=== PATIENT | female | born 1940 | race Caucasian/White ===

== ENCOUNTER 2017-01-31 06:18 | Emergency (ER) | payer MEDICARE, OTHER ==
[~2017-01-31] VITALS: Ht 157.5 cm; Wt 59.0 kg
[~2017-01-31 06:18] MED LIST: ACET325T9 PO; AMLO5TAB2 PO; ASCO500T3 PO; ASPI81TA2 PO; CALC-47 PO; CYCL1DRO EACHEYE; EYEL1TOW3 TP; FERR-26 PO; GLUC1CAP57 PO; GUAI-42 PO; HYDR-2868 PO; HYDR-2869 PO; HYDR100T24 PO; IRON1CAP14 PO; ISOS30TA4 PO; MULT1CAP15 PO; NEBI20TA2 PO; NITR0.4T SL; OMEP20CA9 PO; OMEP20TA PO; OMEP40CA5 PO; PANT40TA5 PO; PRAV40TA2 PO; SOLI5TAB PO; VIT1CAPS12 PO
[2017-01-31] MEDS ORDERED: ONDANSETRON ODT 4 MG TAB.RAPDIS ONE (06:23)
[2017-01-31] MEDS ORDERED: IV NORMAL SALINE 1,000ML 1,000 ML IV SCH ×2 (06:46→09:00)
[2017-01-31] MEDS ORDERED: ONDANSETRON PF 4 MG/2 ML VIAL. IV ONE (07:30)
[2017-01-31] MEDS ORDERED: ONDANSETRON ODT 4 MG TAB.RAPDIS PO ONE (07:30)
[2017-01-31] MEDS ORDERED: FAMOTIDINE 20 MG/2 ML VIAL IVP ONE (07:30)
--- NOTE | 2017-01-31 07:42 | EKG ---
[address] [address] Test Date: 2017-01-31 Test Time: 07:39:54 Pat Name: ADRI SHABAZZ Department: Room: Gender: F Rail Director: VIPUL : 1940 Requested By: ROXI BROWNE Order Number: [id number] Reading MD: Stalin Moe Measurements Intervals [place] Rate: 78 P: 47 LA: 158 QRS: 40 QRSD: 74 T: 59 QT: 378 QTc: 434 Interpretive Statements SINUS RHYTHM Electronically Signed On 02-04-2017 15:28:09 CDT by Stalin Moe
[2017-01-31 07:45] LABS: BASO % 0 % (0-3); EOS % 0 % (0-3); HEMATOCRIT 38.1 % (36.0-47.0); HEMOGLOBIN 12.4 g/dL (12.0-15.5); LYMPH # 0.4 x10^3/uL (1.0-4.8); LYMPH % 3 % (24-48); MEAN CORPUSCULAR HEMOGLOBIN 29 pg (25-35); MEAN CORPUSCULAR HGB CONC 33 g/dL (31-37); MEAN CORPUSCULAR VOLUME 90 fL (79-100); MONO # 0.9 x10^3/uL (0.0-1.1); MONO % 8 % (0-9); NEUT # 11.1 x10^3uL (1.8-7.7); NEUT % 89 % (31-73); PLATELET COUNT 152 x10^3/uL (140-400); RED BLOOD COUNT 4.26 x10^6/uL (3.50-5.40); RED CELL DISTRIBUTION WIDTH 13.8 % (11.5-14.5); WHITE BLOOD COUNT 12.5 x10^3/uL (4.0-11.0)
[2017-01-31 07:50] LABS: ALBUMIN 3.7 g/dL (3.4-5.0); ALBUMIN/GLOBULIN RATIO 1.1 (1.0-1.7); CREATININE 1.7 mg/dL (0.6-1.0); GFR 29.4; MAGNESIUM 1.6 mg/dL (1.8-2.4); POTASSIUM 4.1 mmol/L (3.5-5.1); TOTAL BILIRUBIN 0.5 mg/dL (0.2-1.0)
--- NOTE | 2017-01-31 07:51 | RAD ---
Indication nausea and vomiting. A single view of the chest as well as flat and upright films of the abdomen were obtained. The chest is compared to an examination 11/18/2016. No recent plain film imaging of the abdomen is available. Postoperative changes are noted. Heart size is within normal limits. There is no congestive heart failure focal infiltrate significant pleural fluid collection or pneumothorax. There is no free air. The abdominal gas pattern is largely gasless. There are densities in the pelvis which are likely incidental. A definite or acute finding is not apparent on plain films. Vascular calcification is noted IMPRESSION: No acute finding seen in the chest or abdomen on plain films. The abdomen is largely gasless
--- NOTE | 2017-01-31 07:56 | PHYS DOC ---
General Chief Complaint: NAUSEA/VOMITING/DIARRHEA Stated Complaint: VOMITING,DIARRHEA,CHILLS Time Seen by MD: 06:20 Source: patient Exam Limitations: no limitations Problems: History of Present Illness Initial Comments Pt is 76/F to ED c/o n/v/d. Pt states she awoke approx 0300 with cramping, began having loose stools. Shortly after that she began vomitting, states she's had persistent n/v since then. Last emesis ED parking lot as she arrived, one loose stool here. No blood/travel/bad food exposure/fever/chills. Pt has generalized abdominal cramping no focal pain complaints. She is hungry but fears PO intake due to n/ v. Also c/o dry mouth and generalized fatigue. Timing/Duration: 1-3 hours Severity: severe Modifying Factors: worse with eating Associated Symptoms: malaise, nausea/vomiting Allergies: Coded Allergies: amoxicillin (Unverified Allergy, Severe, Rash, 08/26/15) tetracycline (Unverified Allergy, Severe, Rash, 08/26/15) atorvastatin (Verified Allergy, Intermediate, 02/10/16) niacin (Unverified Adverse Reaction, Mild, BLISTERS, 11/16/14) Past Medical History Medical History: other (pancreatitis, anemia, GERD, CKD 2-3, HTN, CAD, HLP) Surgical History: coronary bypass surgery, other (CABG x 2 2009, [place], hysterectomy) Social History Smoker: non-smoker Alcohol: none Drugs: none Review of Systems Constitutional: denies chills, denies diaphoresis, denies fever, malaise Respiratory: denies cough, denies shortness of breath Cardiovascular: denies chest pain, denies palpitations Gastrointestinal: see HPI Genitourinary: denies dysuria, denies frequency, denies hematuria Musculoskeletal: denies back pain, denies joint swelling, denies neck pain Psychiatric/Neurological: denies headache, denies numbness, denies paresthesia Physical Exam General Appearance: WD/WN, moderate distress Eyes: bilateral eye EOMI, bilateral eye PERRL, bilateral eye normal inspection Ear, Nose, Throat: hearing grossly normal, normal ENT inspection (very dry membranes), normal pharynx Neck: non-tender, supple Respiratory: normal breath sounds, no respiratory distress Cardiovascular: normal peripheral pulses, regular rate, rhythm Gastrointestinal: soft (ND, generalized mild TTP no focality, no r/g/mass) Rectal: deferred Back: no CVA tenderness, no vertebral tenderness Extremities: non-tender, normal inspection Neurologic/Psychiatric: 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 PHYSICIAN: ROXI BROWNE DO REASON: n/v/d PROCEDURE: ACUTE ABDOMEN SERIES Indication nausea and vomiting. A single view of the chest as well as flat and upright films of the abdomen were obtained. The chest is compared to an examination 11/18/2016. No recent plain film imaging of the abdomen is available. Postoperative changes are noted. Heart size is within normal limits. There is no congestive heart failure focal infiltrate significant pleural fluid collection or pneumothorax. There is no free air. The abdominal gas pattern is largely gasless. There are densities in the pelvis which are likely incidental. A definite or acute finding is not apparent on plain films. Vascular calcification is noted IMPRESSION: No acute finding seen in the chest or abdomen on plain films. The abdomen is largely gasless DICTATED AND SIGNED BY: ART COOK MD DATE: 01/31/17 0745 CC: ADELE WALDROP; ROXI BROWNE DO ~ 0818: Time in department 2 hours. Pt will have prolonged ED course as she has not produced urine specimen. Prolonged ED course due to lab delay. Reassuring workup. No n/v, pt feeling much better ready for discharge. Color improved as well as affect. Departure Time of Disposition: 08:37 Disposition: 01 HOME, SELF-CARE Diagnosis: gastroenteritis Condition: IMPROVED Patient Instructions: Viral Gastroenteritis, [id number] Additional Instructions: Rest, no strenuous activity. Clear liquids, advance to bland diet as tolerated. Aggressive hydration with gatorade, water. OTC probiotics or cultured yogurt daily until bowels normalize. Rx: zofran odt, phenergan suppositories Follow up with your doctor Friday if not better. Return to ED with new or changing symptoms. ROXI BROWNE DO Jan 31, 2017 07:56
[2017-01-31] MEDS ORDERED: PROM25SU32 RC (08:41)
[2017-01-31] MEDS ORDERED: ONDA4TAB10 PO (08:41)
[2017-01-31 08:51] LABS: % BANDS 10 % (0-9); % EOS 1 % (0-5); % LYMPHS 3 % (24-48); % METAS 2 % (0-0); % MONOS 6 % (0-10); % SEGS 78 % (35-66)
[2017-01-31 08:52] LABS: PLT ESTIMATE ADEQUATE (ADEQUATE)
[2017-01-31 08:53] LABS: CLARITY,URINE CLEAR; COLOR,URINE YELLOW
[2017-01-31 08:54] LABS: BILIRUBIN,URINE NEG (NEG); GLUCOSE,URINE NEG (NEG); NITRITE,URINE NEG (NEG); UROBILINOGEN,URINE 0.2 mg/dL (0.2 mg/dL)
[2017-01-31 09:04] VITALS: BP 167/65
[2017-01-31 09:13] LABS: AMPHETAMINE/METHAMPHETAMINE NEG (NEG); BARBITURATES NEG (NEG); BENZODIAZEPINES NEG (NEG); CANNABINOIDS NEG (NEG); COCAINE NEG (NEG); METHADONE NEG (NEG); OPIATES NEG (NEG); PHENCYCLIDINE NEG (NEG)
== END 2017-01-31 09:31 | disposition home or self-care (01) ==
LOC: ER 06:18
DX: K52.9 Noninfective gastroenteritis and colitis, unspecified (principal); K21.9 Gastro-esophageal reflux disease without esophagitis; I25.10 Atherosclerotic heart disease of native coronary artery without angina pectoris; I12.9 Hypertensive chronic kidney disease with stage 1 through stage 4 chronic kidney disease, or unspecified chronic kidney disease; N18.3 Chronic kidney disease, stage 3 (moderate); Z86.2 Personal history of diseases of the blood and blood-forming organs and certain disorders involving the immune mechanism; E78.5 Hyperlipidemia, unspecified; Z95.1 Presence of aortocoronary bypass graft; Z88.1 Allergy status to other antibiotic agents; Z88.8 Allergy status to other drugs, medicaments and biological substances
CPT/HCPCS: 36415; 74022; 80053; 80305; 81003; 82150; 82550; 83690; 83735; 84484; 85007; 85027; 93005; 96361; 96374; 96375; 99285; J2405; S0028; G0481; J7030

== ENCOUNTER → 2017-04-09 | Outpatient (CLI) | payer MEDICARE, OTHER ==
[~2017-04-09] MED LIST changes: +ASPI-630 PO; -ASPI81TA2 PO; +CALC-157 PO; -CALC-47 PO; +GUAI-107 PO; -GUAI-42 PO; -OMEP20TA PO; +OMEP20TA8 PO; +ONDA4TAB10 PO; +PROM25SU32 RC; -SOLI5TAB PO; +SOLI5TAB2 PO
--- NOTE | 2017-04-09 10:50 | RAD ---
Indication: Left knee pain. Time of exam 10:38 AM 3 views of the left knee were obtained. There is fairly significant patellofemoral degenerative change with joint space narrowing and marginal spurring. There is some chondrocalcinosis of the medial and lateral compartments. No fractures are identified. There is no dislocation. No effusion is seen. Impression: Chronic changes. No acute bony abnormality is detected.
--- NOTE | 2017-04-09 10:52 | RAD ---
Indication: Left leg pain. Grayscale, color-flow and duplex Doppler evaluation of the left looks to be deep venous system was performed. There is no evidence of a left lower extremity DVT. The left lower extremity deep venous system shows normal compressibility with normal response to augmentation and Valsalva. Note is made of a moderate left knee joint effusion. Impression: 1. No evidence of left lower extremity DVT. 2. Left knee joint effusion.
== END | disposition home or self-care (01) ==
LOC: US 09:46
PROVIDERS: ATTEND Physician Assistant Medical
DX: M17.12 Unilateral primary osteoarthritis, left knee (principal)
CPT/HCPCS: 73562; 93971

== ENCOUNTER → 2018-03-25 | Outpatient (CLI) | payer MEDICARE, OTHER ==
[~2018-03-25] MED LIST changes: -FERR-26 PO; +FERR325T14 PO; -GUAI-107 PO; +GUAI-108 PO
--- NOTE | 2018-03-25 12:24 | RAD ---
EXAM: Left knee, 3 views. HISTORY: Pain. COMPARISON: 04/09/2017 FINDINGS: Frontal, lateral and oblique views of the left knee are obtained. There is mild tricompartmental spurring. There is medial and lateral compartment chondrocalcinosis. There is patellofemoral compartment joint space narrowing. There is a trace joint effusion. There is prepatellar soft tissue prominence which may be physiologic or due to swelling. There are vascular calcifications. IMPRESSION: 1. 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 2. No acute osseous finding. Electronically signed by: Dilcia Wall MD (03/25/2018 12:20 PM) [id number]
== END | disposition home or self-care (01) ==
LOC: DXRAD 10:52
PROVIDERS: ATTEND Orthopaedic Surgery Sports Medicine
DX: M17.12 Unilateral primary osteoarthritis, left knee (principal); M11.262 Other chondrocalcinosis, left knee
CPT/HCPCS: 73562

== ENCOUNTER → 2018-04-06 | Outpatient (CLI) | payer MEDICARE, OTHER ==
[2018-04-06 12:05] LABS: ALBUMIN 3.9 g/dL (3.4-5.0); ALBUMIN/GLOBULIN RATIO 1.1 (1.0-1.7); CALCIUM 10.2 mg/dL (8.5-10.1); CREATININE 1.6 mg/dL (0.6-1.0); GFR 31.4; POTASSIUM 4.1 mmol/L (3.5-5.1); TOTAL BILIRUBIN 0.6 mg/dL (0.2-1.0); TOTAL PROTEIN 7.4 g/dL (6.4-8.2)
== END | disposition home or self-care (01) ==
LOC: LAB 11:12
PROVIDERS: ATTEND Internal Medicine Cardiovascular Disease
DX: E78.01 Familial hypercholesterolemia (principal); I12.9 Hypertensive chronic kidney disease with stage 1 through stage 4 chronic kidney disease, or unspecified chronic kidney disease; N18.3 Chronic kidney disease, stage 3 (moderate); E78.00 Pure hypercholesterolemia, unspecified
CPT/HCPCS: 36415; 80053; 80061

== ENCOUNTER → 2018-04-13 | Outpatient (CLI) | payer MEDICARE, OTHER ==
--- NOTE | 2018-04-13 14:25 | RAD ---
DATE: 2017 EXAM: MAMMO CAROLINE SCREENING BILATERAL HISTORY: Asymptomatic screening mammogram. History of prior benign breast biopsy. COMPARISON: Prior mammograms from 08/30/2016 This study was interpreted with the benefit of Computerized Aided Detection (CAD). The breast parenchyma is primarily fatty replaced. Breast parenchyma level density A. FINDINGS: Bilateral CC and MLO views of the breasts were performed. 3-D tomosynthesis was performed in CC and MLO projections of each breast. Right breast: There are no suspicious microcalcifications, masses or areas of architectural distortion. Benign microcalcifications are present. Left breast: There are no suspicious microcalcifications, masses or areas of architectural distortion. Benign microcalcifications are present. Findings are stable from prior mammogram. IMPRESSION: Negative bilateral mammogram. BI-RADS CATEGORY: 1 NEGATIVE RECOMMENDED FOLLOW-UP: 12M 12 MONTH FOLLOW-UP PQRS compliance statement: Patient information was entered into a reminder system with a target due date 04/13/2019 for the next mammogram. Mammography is a sensitive method for finding small breast cancers, but it does not detect them all and is not a substitute for careful clinical examination. A negative mammogram does not negate a clinically suspicious finding and should not result in delay in biopsying a clinically suspicious abnormality. "Our facility is accredited by the [employer] Mammography Program."
== END | disposition home or self-care (01) ==
LOC: MAMMO 11:03
PROVIDERS: ATTEND Physician Assistant Medical
DX: Z12.31 Encounter for screening mammogram for malignant neoplasm of breast (principal); I12.9 Hypertensive chronic kidney disease with stage 1 through stage 4 chronic kidney disease, or unspecified chronic kidney disease; N18.3 Chronic kidney disease, stage 3 (moderate); E78.5 Hyperlipidemia, unspecified; E78.00 Pure hypercholesterolemia, unspecified
CPT/HCPCS: 77063; 77067

== ENCOUNTER → 2018-08-14 | Outpatient (CLI) | payer MEDICARE, OTHER ==
[~2018-08-14] MED LIST changes: -AMLO5TAB2 PO; +AMLO5TAB7 PO
[2018-08-14 15:06] LABS: BASO % 0 % (0-3); EOS # 0.2 x10^3/uL (0.0-0.7); EOS % 3 % (0-3); HEMATOCRIT 33.4 % (36.0-47.0); HEMOGLOBIN 11.5 g/dL (12.0-15.5); LYMPH # 2.1 x10^3/uL (1.0-4.8); LYMPH % 30 % (24-48); MEAN CORPUSCULAR HEMOGLOBIN 31 pg (25-35); MEAN CORPUSCULAR HGB CONC 34 g/dL (31-37); MEAN CORPUSCULAR VOLUME 90 fL (79-100); MONO # 0.8 x10^3/uL (0.0-1.1); MONO % 11 % (0-9); NEUT % 56 % (31-73); PLATELET COUNT 175 x10^3/uL (140-400); RED BLOOD COUNT 3.71 x10^6/uL (3.50-5.40); RED CELL DISTRIBUTION WIDTH 13.3 % (11.5-14.5); WHITE BLOOD COUNT 7.1 x10^3/uL (4.0-11.0)
[2018-08-14 15:07] LABS: ALBUMIN 3.5 g/dL (3.4-5.0); CALCIUM 8.2 mg/dL (8.5-10.1); CREATININE 1.8 mg/dL (0.6-1.0); GFR 27.4; PHOSPHORUS 3.5 mg/dL (2.6-4.7)
[2018-08-15 06:12] LABS: CALCIUM PTH 8.6 mg/dL (8.7-10.3); CREATININE PTH 1.73 mg/dL (0.57-1.00); PTH INTACT 149 pg/mL (15-65)
== END | disposition home or self-care (01) ==
LOC: LAB 13:54
PROVIDERS: ATTEND Internal Medicine Nephrology
DX: I12.9 Hypertensive chronic kidney disease with stage 1 through stage 4 chronic kidney disease, or unspecified chronic kidney disease (principal); N18.2 Chronic kidney disease, stage 2 (mild); D63.1 Anemia in chronic kidney disease; N20.0 Calculus of kidney
CPT/HCPCS: 36415; 80069; 82728; 83540; 83550; 83970; 85025

== ENCOUNTER 2018-12-05 04:27 | Inpatient (IN) | payer MEDICARE, OTHER ==
[~2018-12-05] VITALS: Ht 157.5 cm; Wt 60.8 kg
[~2018-12-05 04:27] MED LIST changes: +AMLO5TAB10 PO; -AMLO5TAB7 PO
--- NOTE | 2018-12-05 04:30 | ED.ADGEN ---
Past History Past Medical History: CAD, Gallstones, GERD, Hypertension, Kidney Stones, NM, Pancreatitis, URI, Other Past Surgical History: Cholecystectomy, Coronary Bypass Surgery, Hysterectomy Alcohol Use: None Drug Use: None Adult General Chief Complaint Chief Complaint ".. I had some wheezing and a cough... but I ve around sick grand kids.. he sick.. but what worried thought I was getting some reflux.. I vomited up a little acid in my throat... got some epigastric pain.. . but then it did not go away.. chest pain got bad... so I took two nitros.. but it did not help... so I came in.. now I have only discomfort of one or two..." HPI HPI Patient is a 78 year old female who presents with above hx and complaints cough , wheeze, epigastric and chest pain. The patient has significant medical history with history of coronary artery disease, coronary artery bypass surgery x 2 in 2009 at [facility],eveated lipids. GERD, gastric polyp, hypertension, kidney stones, renal insuf., creat 1.8 , arthritis and pancreatitis. Stress test past year was reportedly show no acute changes., Patient has been exposed to numerous sick family members. Patient did receive her flu vaccination this season. No recent travel or trauma. No history of tarry stools. Patient's pain was initially severe but on presentation stated to have resolved to 1 or 2 in epigastric area. Pt. normally follows with [facility]. Has followed with Mario Alberto 's group for cardiology at [facility].. Review of Systems Review of Systems Constitutional: Denies fever or chills [] Eyes: Denies change in visual acuity, redness, or eye pain [] HENT: Hx; of nasal congestion , rhinorrhea and sore throat [] Respiratory: Hx. of cough and wheezing. Cardiovascular: No additional information not addressed in HPI [] GI: Complaints of epigastric abdominal pain, nausea, vomiting, reflux. Denies, bloody stools or diarrhea [] : Denies dysuria or hematuria [] Musculoskeletal: Denies back pain or joint pain [] Integument: Denies rash or skin lesions [] Neurologic: Denies headache, focal weakness or sensory changes [] Endocrine: Denies polyuria or polydipsia [] All other systems were reviewed and found to be within normal limits, except as documented in this note. Family History Family History Noncontributory Current Medications Current Medications Current Medications Medications (Trade) Dose Ordered Sig/Isaiah Start Time Stop Time Status Last Admin Dose Admin Aspirin (Children'S Aspirin) 324 mg 1X ONCE 12/05/18 05:15 12/05/18 05:16 DC 12/05/18 05:23 324 MG Enoxaparin Sodium (Lovenox 60mg Syringe) 60 mg 1X ONCE 12/05/18 05:15 12/05/18 05:16 DC 12/05/18 05:24 60 MG Famotidine (Pepcid Vial) 20 mg 1X ONCE 12/05/18 05:15 12/05/18 05:16 DC 12/05/18 05:22 20 MG Nitroglycerin (Nitro-Bid Oint) 1 inch Q8HRS 12/05/18 06:00 Ondansetron HCl (Zofran) 8 mg 1X ONCE 12/05/18 05:15 12/05/18 05:16 DC 12/05/18 05:22 8 MG Sodium Chloride 1,000 ml @ 100 mls/hr Q10H 12/05/18 05:00 12/05/18 14:59 12/05/18 05:22 100 MLS/HR Allergies Allergies Allergies Coded Allergies Type Severity Reaction Last Updated Verified amoxicillin Allergy Severe Rash 08/26/15 No tetracycline Allergy Severe Rash 08/26/15 No atorvastatin Allergy Intermediate 02/10/16 Yes niacin Adverse Reaction Mild BLISTERS 11/16/14 No Physical Exam Physical Exam Constitutional: Mild distress, non-toxic appearance. [] HENT: Normocephalic, atraumatic, bilateral external ears normal, oropharynx moist, no oral exudates, nose normal. [] Eyes: PERRLA, EOMI, conjunctiva normal, no discharge. Glasses Neck: Normal range of motion, no tenderness, supple, no stridor. [] Cardiovascular: Tachycardia Heart rate regular rhythm, no murmur []. PMI to the left Lungs & Thorax: Bilateral breath sounds equal apex with few scattered wheezes on auscultation []. Midline coronary artery bypass scar Abdomen: Bowel sounds normal, soft, mild epigastric tenderness, no masses, no pulsatile masses. [Abdomen scars. Declines rectal at this time. Skin: Warm, dry, no erythema, no rash. [] Back: No tenderness, no CVA tenderness. [] Extremities: No tenderness, no cyanosis, no clubbing, ROM intact, no edema. [] No cording appreciated. Arthritic complaints Neurologic: Alert and oriented X 3, normal motor function, normal sensory function, no focal deficits noted. [] Psychologic: Affect anxious, judgement normal, mood normal. [] Current Patient Data Vital Signs Vital Signs Date Time Temp Pulse Resp B/P (MAP) Pulse Ox O2 Delivery O2 Flow Rate FiO2 12/05/18 05:45 75 21 220/85 (130) 97 12/05/18 04:37 98.6 Room Air Lab Results Laboratory Tests Test 12/05/18 04:55 12/05/18 05:00 12/05/18 05:03 12/05/18 05:30 White Blood Count 7.6 x10^3/uL (4.0-11.0) Red Blood Count 3.76 x10^6/uL (3.50-5.40) Hemoglobin 11.6 g/dL (12.0-15.5) L Hematocrit 33.8 % (36.0-47.0) L Mean Corpuscular Volume 90 fL (79-100) Mean Corpuscular Hemoglobin 31 pg (25-35) Mean Corpuscular Hemoglobin Concent 34 g/dL (31-37) Red Cell Distribution Width 13.4 % (11.5-14.5) Platelet Count 172 x10^3/uL (140-400) Neutrophils (%) (Auto) 51 % (31-73) Lymphocytes (%) (Auto) 31 % (24-48) Monocytes (%) (Auto) 13 % (0-9) H Eosinophils (%) (Auto) 3 % (0-3) Basophils (%) (Auto) 1 % (0-3) Neutrophils # (Auto) 3.9 x10^3uL (1.8-7.7) Lymphocytes # (Auto) 2.4 x10^3/uL (1.0-4.8) Monocytes # (Auto) 1.0 x10^3/uL (0.0-1.1) Eosinophils # (Auto) 0.3 x10^3/uL (0.0-0.7) Basophils # (Auto) 0.1 x10^3/uL (0.0-0.2) Prothrombin Time 9.9 SEC (9.4-11.4) Prothrombin Time INR 1.0 (0.9-1.1) PTT 23 SEC (23-33) D-Dimer (Billie) 0.65 mg/L (0.00-0.50) H Sodium Level 145 mmol/L (136-145) Potassium Level 3.7 mmol/L (3.5-5.1) Chloride Level 106 mmol/L (98-107) Carbon Dioxide Level 29 mmol/L (21-32) Anion Gap 10 (6-14) Blood Urea Nitrogen 34 mg/dL (7-20) H Creatinine 1.7 mg/dL (0.6-1.0) H Estimated GFR (Cockcroft-Gault) 29.2 Glucose Level 103 mg/dL (70-99) H Lactic Acid Level 1.4 mmol/L (0.4-2.0) Calcium Level 8.8 mg/dL (8.5-10.1) Magnesium Level 1.8 mg/dL (1.8-2.4) Total Bilirubin 0.2 mg/dL (0.2-1.0) Direct Bilirubin 0.1 mg/dL (0.0-0.2) Aspartate Amino Transferase (AST) 21 U/L (15-37) Alanine Aminotransferase (ALT) 22 U/L (14-59) Alkaline Phosphatase 81 U/L (46-116) Creatine Kinase 54 U/L (26-192) Troponin I Quantitative < 0.017 ng/mL (0-0.055) FK-Ssn-F-Type Natriuretic Peptide 703 pg/mL (0-449) H Total Protein 6.5 g/dL (6.4-8.2) Albumin 3.6 g/dL (3.4-5.0) Lipase 345 U/L (73-393) Influenza Type A (Rapid) Negative (NEGATIVE) Influenza Type B (Rapid) Negative (NEGATIVE) Group A Streptococcus Rapid Negative (NEGATIVE) Urine Collection Type Clean catch Urine Color Straw Urine Clarity Hazy Urine pH 7.0 Urine Specific [place] 1.010 Urine Protein Neg (NEG-TRACE) Urine Glucose (UA) Neg mg/dL (NEG) Urine Ketones (Stick) Neg mg/dL (NEG) Urine Blood Neg (NEG) Urine Nitrite Neg (NEG) Urine Bilirubin Neg (NEG) Urine Urobilinogen Dipstick 0.2 mg/dL (0.2 mg/dL) Urine Leukocyte Esterase Small (NEG) Urine RBC Rare /HPF (0-2) Urine WBC 1-4 /HPF (0-4) Urine Squamous Epithelial Cells Few /LPF Urine Bacteria Mod /HPF (0-FEW) Urine Opiates Screen Neg (NEG) Urine Methadone Screen Neg (NEG) Urine Barbiturates Neg (NEG) Urine Phencyclidine Screen Neg (NEG) Urine Amphetamine/Methamphetamine Neg (NEG) Urine Benzodiazepines Screen Neg (NEG) Urine Cocaine Screen Neg (NEG) Urine Cannabinoids Screen Neg (NEG) Urine Ethyl Alcohol Neg (NEG) EKG EKG My interpretation EKG shows a sinus rhythm at 80 bpm. No acute morphology[] Radiology/Procedures Radiology/Procedures My interpretation of CXR shows[] no acute cardiopulmonary findings. By pass graft wires. Course & Med Decision Making Course & Med Decision Making Pertinent Labs and Imaging studies reviewed. (See chart for details) Heart score [address] Martinez, Cardiology Consult. Discussed testing and tx. plan with Dr. Martinez. [] Final Impression Final Impression 1. Chest pain[]/ Epigastric Pain 2. Accelerated hypertension 3. Elevated Creat./BUN 34/1.7 (normally 1.8 in chart) 4. Anemia 11.6 Hgb 5. D-dimer 0.65 6. Hx. CARDz, s/p CABG 2010 - Reported Stress eval last year stable 7. Hx. GERD/Gastritis and Gastric polpy on last EGC Dragon Disclaimer Dragon Disclaimer This electronic medical record was generated, in whole or in part, using a voice recognition dictation system. Dragon Disclaimer This chart was dictated in whole or in part using Voice Recognition software in a busy, high-work load, and often noisy Emergency Department environment. It may contain unintended and wholly unrecognized errors or omissions. Discharge Summary Brief Hospital Course Allergies Allergies Coded Allergies Type Severity Reaction Last Updated Verified amoxicillin Allergy Severe Rash 08/26/15 No tetracycline Allergy Severe Rash 08/26/15 No atorvastatin Allergy Intermediate 02/10/16 Yes niacin Adverse Reaction Mild BLISTERS 11/16/14 No Vital Signs Vital Signs Date Time Temp Pulse Resp B/P (MAP) Pulse Ox O2 Delivery O2 Flow Rate FiO2 12/05/18 05:45 75 21 220/85 (130) 97 12/05/18 04:37 98.6 Room Air Lab Results Laboratory Tests Test 12/05/18 04:55 12/05/18 05:00 12/05/18 05:03 12/05/18 05:30 White Blood Count 7.6 x10^3/uL (4.0-11.0) Red Blood Count 3.76 x10^6/uL (3.50-5.40) Hemoglobin 11.6 g/dL (12.0-15.5) Hematocrit 33.8 % (36.0-47.0) Mean Corpuscular Volume 90 fL (79-100) Mean Corpuscular Hemoglobin 31 pg (25-35) Mean Corpuscular Hemoglobin Concent 34 g/dL (31-37) Red Cell Distribution Width 13.4 % (11.5-14.5) Platelet Count 172 x10^3/uL (140-400) Neutrophils (%) (Auto) 51 % (31-73) Lymphocytes (%) (Auto) 31 % (24-48) Monocytes (%) (Auto) 13 % (0-9) Eosinophils (%) (Auto) 3 % (0-3) Basophils (%) (Auto) 1 % (0-3) Neutrophils # (Auto) 3.9 x10^3uL (1.8-7.7) Lymphocytes # (Auto) 2.4 x10^3/uL (1.0-4.8) Monocytes # (Auto) 1.0 x10^3/uL (0.0-1.1) Eosinophils # (Auto) 0.3 x10^3/uL (0.0-0.7) Basophils # (Auto) 0.1 x10^3/uL (0.0-0.2) Prothrombin Time 9.9 SEC (9.4-11.4) Prothromb Time International Ratio 1.0 (0.9-1.1) Activated Partial Thromboplast Time 23 SEC (23-33) D-Dimer (Billie) 0.65 mg/L (0.00-0.50) Sodium Level 145 mmol/L (136-145) Potassium Level 3.7 mmol/L (3.5-5.1) Chloride Level 106 mmol/L (98-107) Carbon Dioxide Level 29 mmol/L (21-32) Anion Gap 10 (6-14) Blood Urea Nitrogen 34 mg/dL (7-20) Creatinine 1.7 mg/dL (0.6-1.0) Estimated GFR (Cockcroft-Gault) 29.2 Glucose Level 103 mg/dL (70-99) Lactic Acid Level 1.4 mmol/L (0.4-2.0) Calcium Level 8.8 mg/dL (8.5-10.1) Magnesium Level 1.8 mg/dL (1.8-2.4) Total Bilirubin 0.2 mg/dL (0.2-1.0) Direct Bilirubin 0.1 mg/dL (0.0-0.2) Aspartate Amino Transf (AST/SGOT) 21 U/L (15-37) Alanine Aminotransferase (ALT/SGPT) 22 U/L (14-59) Alkaline Phosphatase 81 U/L (46-116) Creatine Kinase 54 U/L (26-192) Troponin I Quantitative < 0.017 ng/mL (0-0.055) KI-Qrx-Y-Type Natriuretic Peptide 703 pg/mL (0-449) Total Protein 6.5 g/dL (6.4-8.2) Albumin 3.6 g/dL (3.4-5.0) Lipase 345 U/L (73-393) Influenza Type A (Rapid) Negative (NEGATIVE) Influenza Type B (Rapid) Negative (NEGATIVE) Group A Streptococcus Rapid Negative (NEGATIVE) Urine Collection Type Clean catch Urine Color Straw Urine Clarity Hazy Urine pH 7.0 Urine Specific [place] 1.010 Urine Protein Neg (NEG-TRACE) Urine Glucose (UA) Neg mg/dL (NEG) Urine Ketones (Stick) Neg mg/dL (NEG) Urine Blood Neg (NEG) Urine Nitrite Neg (NEG) Urine Bilirubin Neg (NEG) Urine Urobilinogen Dipstick 0.2 mg/dL (0.2 mg/dL) Urine Leukocyte Esterase Small (NEG) Urine RBC Rare /HPF (0-2) Urine WBC 1-4 /HPF (0-4) Urine Squamous Epithelial Cells Few /LPF Urine Bacteria Mod /HPF (0-FEW) Urine Opiates Screen Neg (NEG) Urine Methadone Screen Neg (NEG) Urine Barbiturates Neg (NEG) Urine Phencyclidine Screen Neg (NEG) Urine Amphetamine/Methamphetamine Neg (NEG) Urine Benzodiazepines Screen Neg (NEG) Urine Cocaine Screen Neg (NEG) Urine Cannabinoids Screen Neg (NEG) Urine Ethyl Alcohol Neg (NEG) Brief Hospital Course Ms. Morales is a 78 old female who presented with GERD, accelerated hypertension and CP. Admitted Dr. Martinez- and Cardiology consult. Discharge Information Condition at Discharge: Improved, Stable Dischare Medications Current Medications Aspirin (Children'S Aspirin) 324 mg 1X ONCE PO Last administered on 12/05/18at 05:23; Admin Dose 324 MG; Start 12/05/18 at 05:15; Stop 12/05/18 at 05:16; Status DC Sodium Chloride 1,000 ml @ 100 mls/hr Q10H IV Last administered on 12/05/18at 05:22; Admin Dose 100 MLS/HR; Start 12/05/18 at 05:00; Stop 12/05/18 at 14:59 Nitroglycerin (Nitro-Bid Oint) 1 inch 1X ONCE TP Last administered on at 05:23; Admin Dose 1 INCH; Start 12/05/18 at 05:15; Stop 12/05/18 at 05:16; Status DC Enoxaparin Sodium (Lovenox 60mg Syringe) 60 mg 1X ONCE SQ Last administered on 12/05/18at 05:24; Admin Dose 60 MG; Start 12/05/18 at 05:15; Stop 12/05/18 at 05:16; Status DC Famotidine (Pepcid Vial) 20 mg 1X ONCE IVP Last administered on 12/05/18at 05: 22; Admin Dose 20 MG; Start 12/05/18 at 05:15; Stop 12/05/18 at 05:16; Status DC Ondansetron HCl (Zofran) 8 mg 1X ONCE IV Last administered on 12/05/18at 05:22 ; Admin Dose 8 MG; Start 12/05/18 at 05:15; Stop 12/05/18 at 05:16; Status DC Nitroglycerin (Nitro-Bid Oint) 1 inch Q8HRS TP ; Start 12/05/18 at 06:00 Active Scripts Active Phenergan (Promethazine HCl) 25 Mg Supp.rect 25 Mg RC Q6HRS Zofran Odt (Ondansetron) 4 Mg Tab.rapdis 4 Mg PO Q6HRS Pantoprazole Sodium 40 Mg Tablet.dr 40 Mg PO DAILYAC Mucinex Dm Er 600-30 Mg Tablet (Guaifenesin/Dextromethorphan) 1 Each Tab.er.12h 1 Tab PO BID Amlodipine Besylate 5 Mg Tablet 5 Mg PO DAILY Reported Tylenol (Acetaminophen) 325 Mg Tablet 650 Mg PO Q6HRS PRN LAST DOSE GIVEN: DATE: YESTER TIME: AT BEDTIME NEXT DOSE DUE: DATE: TODAY TIME: IF NEEDED Ferrous Sulfate 325 Mg Tablet 1 Tab PO DAILY LAST DOSE GIVEN: DATE: TODAY TIME: AM NEXT DOSE DUE: DATE: TOMORROW TIME: AM Vesicare (Solifenacin Succinate) 5 Mg Tablet 1 Tab PO QHS LAST DOSE GIVEN: DATE: YES TIME: AT BEDTIME NEXT DOSE DUE: DATE: TODAY TIME: AT BEDTIME Systane (Eyelid Cleanser Combination #9) 1 Each Towelette 1 Each TP PRN LAST DOSE GIVEN: DATE: TIME: NEXT DOSE DUE: DATE: NEEDED TIME: Nitrostat (Nitroglycerin) 0.4 Mg Tab.subl 1 Tab SL UD LAST DOSE GIVEN: NOT ADMINISTERED THIS ADMISSION NEXT DOSE DUE: DATE: TODAY TIME: IF NEEDED DATE: TAKE DIRECTED TIME: Bystolic (Nebivolol Hcl) 20 Mg Tablet 0.5 Tab PO DAILY LAST DOSE GIVEN: DATE: TODAY TIME: AM NEXT DOSE DUE: DATE: TOMORR TIME: AM Multivitamins (Multivitamin) 1 Each Capsule 1 Each PO DAILY LAST DOSE GIVEN: DATE: TODAY TIME: AM NEXT DOSE DUE: DATE: TOMORR TIME: AM Isosorbide Mononitrate Er (Isosorbide Mononitrate) 30 Mg Tab.er.24h 1 Tab PO DAILY LAST DOSE GIVEN: DATE: TODAY TIME: AM NEXT DOSE DUE: DATE: TOMORROW TIME: AM Hydralazine Hcl 50 Mg Tablet 100 Mg PO HS LAST DOSE GIVEN: DATE: YESTER TIME: AT BEDTIME NEXT DOSE DUE: DATE: TODAY TIME: AT BEDTIME Glucosamine Chondroitin Cap (Glucosamine/Chondroitin Sulf A) 1 Each Capsule 2 Each PO NOON LAST DOSE GIVEN: DATE: TODAY TIME: NOON NEXT DOSE DUE: DATE: TOMORROW TIME: NOON Restasis (Cyclosporine) 1 Each Droperette 1 Drop EACHEYE BID LAST DOSE GIVEN: DATE: TODAY TIME: AM NEXT DOSE DUE: DATE: TODAY TIME: PM Calcium 500 + Vit D 200 Tablet (Calcium Carbonate/Vitamin D3) 1 Each Tablet 1 Each PO BIDWMEALS LAST DOSE GIVEN: NOT GIVEN THIS ADMISSION NEXT DOSE DUE: DATE: TODAY TIME: PM DATE: 02/11/16 TIME: PM Aspirin 81 Mg Tab.chew 81 Mg PO DAILY LAST DOSE GIVEN: DATE: TODAY TIME: AM NEXT DOSE DUE: DATE: TOMORROW TIME: AM Ascorbic Acid 500 Mg Tablet 500 Mg PO DAILY LAST DOSE GIVEN: DATE: TODAY TIME: AM NEXT DOSE DUE: DATE: TOMORR TIME: AM Pravastatin Sodium 40 Mg Tablet 1 Tab PO QHS LAST DOSE GIVEN: DATE: YESTERDAY TIME: AT BEDTIME NEXT DOSE DUE: DATE: TODAY TIME: AT BEDTIME KRYSTA BOJORQUEZ MD Dec 05, 2018 04:29
[2018-12-05] MEDS ORDERED: IV NORMAL SALINE 1,000ML 1,000 ML IV SCH (05:00)
[2018-12-05] MEDS ORDERED: NITROGLYCERIN OINT 1 GM PACKET. TP ONE (05:15)
[2018-12-05] MEDS ORDERED: ASPIRIN 81 MG TAB.CHEW PO ONE (05:15)
[2018-12-05] MEDS ORDERED: ONDANSETRON PF 4 MG/2 ML VIAL. IV ONE (05:15)
[2018-12-05] MEDS ORDERED: ENOXAPARIN ** NOTE DOSE ** SYRINGE SQ ONE (05:15)
[2018-12-05] MEDS ORDERED: FAMOTIDINE 20 MG/2 ML VIAL IVP ONE (05:15)
[2018-12-05 05:38] LABS: BASO # 0.1 x10^3/uL (0.0-0.2); BASO % 1 % (0-3); EOS # 0.3 x10^3/uL (0.0-0.7); EOS % 3 % (0-3); HEMATOCRIT 33.8 % (36.0-47.0); HEMOGLOBIN 11.6 g/dL (12.0-15.5); LYMPH # 2.4 x10^3/uL (1.0-4.8); LYMPH % 31 % (24-48); MEAN CORPUSCULAR HEMOGLOBIN 31 pg (25-35); MEAN CORPUSCULAR HGB CONC 34 g/dL (31-37); MEAN CORPUSCULAR VOLUME 90 fL (79-100); MONO % 13 % (0-9); NEUT # 3.9 x10^3uL (1.8-7.7); NEUT % 51 % (31-73); PLATELET COUNT 172 x10^3/uL (140-400); RED BLOOD COUNT 3.76 x10^6/uL (3.50-5.40); RED CELL DISTRIBUTION WIDTH 13.4 % (11.5-14.5); WHITE BLOOD COUNT 7.6 x10^3/uL (4.0-11.0)
[2018-12-05 05:52] LABS: INFLUENZA A PATIENT NEGATIVE (NEGATIVE); INFLUENZA B PATIENT NEGATIVE (NEGATIVE)
[2018-12-05 05:55] LABS: ALBUMIN 3.6 g/dL (3.4-5.0); CALCIUM 8.8 mg/dL (8.5-10.1); CREATININE 1.7 mg/dL (0.6-1.0); DIRECT BILIRUBIN 0.1 mg/dL (0.0-0.2); GFR 29.2; MAGNESIUM 1.8 mg/dL (1.8-2.4); POTASSIUM 3.7 mmol/L (3.5-5.1); TOTAL BILIRUBIN 0.2 mg/dL (0.2-1.0); TOTAL PROTEIN 6.5 g/dL (6.4-8.2)
[2018-12-05] MEDS ORDERED: NITROGLYCERIN OINT 1 GM PACKET. TP SCH (06:00)
[2018-12-05 06:05] LABS: BARBITURATES NEG (NEG); BENZODIAZEPINES NEG (NEG); CANNABINOIDS NEG (NEG); COCAINE NEG (NEG); METHADONE NEG (NEG); OPIATES NEG (NEG); PHENCYCLIDINE NEG (NEG)
[2018-12-05 06:06] LABS: AMPHETAMINE/METHAMPHETAMINE NEG (NEG)
[2018-12-05 06:10] LABS: BILIRUBIN,URINE NEG (NEG); CLARITY,URINE HAZY; COLOR,URINE STRAW; GLUCOSE,URINE NEG (NEG); NITRITE,URINE NEG (NEG); UROBILINOGEN,URINE 0.2 mg/dL (0.2 mg/dL)
[2018-12-05 06:11] LABS: BACTERIA,URINE MOD /HPF (0-FEW); RBC,URINE RARE /HPF (0-2); SQUAMOUS EPITHELIAL CELL,UR FEW /LPF
[2018-12-05] MEDS ORDERED: MORPHINE SULFATE 4 MG/ML DISP.SYRIN. IV PRN (06:15)
[2018-12-05] MEDS ORDERED: METOPROLOL TARTRATE 5 MG/5 ML VIAL. IV PRN (06:15)
[2018-12-05] MEDS ORDERED: FAMOTIDINE 20 MG TABLET PO ONE (06:15)
[2018-12-05] MEDS ORDERED: METOPROLOL TARTRATE 5 MG/5 ML VIAL. IV ONE (06:15)
[2018-12-05] MEDS ORDERED: ONDANSETRON PF 4 MG/2 ML VIAL. IV PRN (06:15)
[2018-12-05] MEDS ORDERED: cloNIDine HCL 0.1 MG TABLET PO ONE (07:30)
[2018-12-05] MEDS: IPRATRPIUM/ALBUTEROL 0.5/2.5MG 3 ML NEBU. NEB SCH ×3 (08:00→15:35)
--- NOTE | 2018-12-05 08:32 | RAD ---
Indication:Chest pain and pressure. Hx double bypass 2009 TECHNIQUE:Portable AP chest X-ray COMPARISON:None FINDINGS: CABG changes noted. Heart is normal in size. Lungs are clear. No pneumothorax or pleural effusion. Visualized bony thorax is within normal limits. IMPRESSION: No acute pulmonary process. Electronically signed by: Johnny Lucas DO (12/05/2018 8:29 AM) [facility]
--- NOTE | 2018-12-05 08:33 | RAD ---
Ultrasound venous Doppler INDICATION:elev D dimer TECHNIQUE: Grayscale, color Doppler and spectral waveform ultrasound images of the bilateral lower extremities deep veins obtained. COMPARISON: None FINDINGS: The interrogated deep veins are compressible and demonstrate evidence of blood flow with normal respiratory variation and response to augmentation. Significant soft tissue swelling seen in the left calf. IMPRESSION: No sonographic evidence of acute DVT of the bilateral lower extremity deep veins. Electronically signed by: Johnny Lucas DO (12/05/2018 8:30 AM) [facility]
--- NOTE | 2018-12-05 09:50 | NUR ---
Admit to room 125 via cart accompanied by staff. Alert and oriented, vs stable with b/p 190/75, heart rate reg, sinus rhythm, no c/o pain or distress at this time. Oriented to room and explained all procedures.
[2018-12-05 10:05] VITALS: BP 190/75
[2018-12-05] MEDS ORDERED: LOSA50TA86 PO (10:28)
[2018-12-05] MEDS ORDERED: ACETAMINOPHEN 325 MG TABLET PO PRN (13:30)
[2018-12-05] MEDS: ASCORBIC ACID 500 MG TABLET PO SCH (13:47)
[2018-12-05] MEDS: MULTIVITAMIN with MINERAL TABLET. PO SCH (13:47)
[2018-12-05] MEDS: FERROUS SULFATE 325 MG TABLET. PO SCH (13:47)
[2018-12-05] MEDS: ISOSORBIDE MONONITRATE ER 30 MG TAB.ER.24H PO SCH (13:47)
[2018-12-05] MEDS: PANTOPRAZOLE 40 MG TABLET. PO SCH (13:47)
--- NOTE | 2018-12-05 14:05 | PDOC2 ---
CONSULT Date of Admission DATE: 12/05/18 TIME: 14:04 Reason for Consult: Chest pain and accelerated hypertension Referring Physician: Dr. Martinez Chief Complaint Chest pain Source: Chart review, Patient History of Present Illness 78-year-old female with history of coronary artery disease s/p CABG, usually followed by [facility] cardiology and hiatal hernia and esophageal stricture s/p dilatation September 2018 apparently woke up early this morning with retrosternal burning pain similar to her acid reflux but the pain persisted and became pressure like sensation and hence she was concerned. She tried nitroglycerin sublingually without any significant relief. She denied any orthopnea/PND, palpitations or syncope. Past Medical History Coronary artery disease s/p CABG in 2009, followed by [facility] cardiology Hypertension Hyperlipidemia Hiatal hernia Esophageal stricture Chronic kidney disease Osteoarthritis Senile macular degeneration Past Surgical History Coronary artery bypass surgery Cataract extraction Hysterectomy Cholecystectomy Family History Hypertension, prostate and brain cancer Social History Patient denied any smoking alcohol or drug use Current Medications Current Medications Aspirin (Children'S Aspirin) 324 mg 1X ONCE PO Last administered on 12/05/18at 05:23; Start 12/05/18 at 05:15; Stop 12/05/18 at 05:16; Status DC Sodium Chloride 1,000 ml @ 100 mls/hr Q10H IV Last administered on 12/05/18at 05:22; Start 12/05/18 at 05:00; Stop 12/05/18 at 14:59 Nitroglycerin (Nitro-Bid Oint) 1 inch 1X ONCE TP Last administered on at 05:23; Start 12/05/18 at 05:15; Stop 12/05/18 at 05:16; Status DC Enoxaparin Sodium (Lovenox 60mg Syringe) 60 mg 1X ONCE SQ Last administered on 12/05/18at 05:24; Start 12/05/18 at 05:15; Stop 12/05/18 at 05:16; Status DC Famotidine (Pepcid Vial) 20 mg 1X ONCE IVP Last administered on 12/05/18at 05: 22; Start 12/05/18 at 05:15; Stop 12/05/18 at 05:16; Status DC Ondansetron HCl (Zofran) 8 mg 1X ONCE IV Last administered on 12/05/18at 05:22 ; Start 12/05/18 at 05:15; Stop 12/05/18 at 05:16; Status DC Ondansetron HCl (Zofran) 4 mg PRN Q4HRS PRN IV NAUSEA/VOMITING; Start 12/05/18 at 06:15; Stop 12/06/18 at 06:14 Morphine Sulfate (Morphine 4mg Syringe) 2 mg PRN Q2HR PRN IV PAIN; Start at 06:15; Stop 12/06/18 at 06:14 Albuterol/ Ipratropium (Duoneb) 3 ml RTQID NEB ; Start 12/05/18 at 08:00; Stop 12/06/18 at 07:59 Nitroglycerin (Nitro-Bid Oint) 1 inch Q8HRS TP ; Start 12/05/18 at 06:00 Aspirin (Children'S Aspirin) 81 mg DAILYWBKFT PO ; Start 12/06/18 at 08:00 Famotidine (Pepcid) 20 mg 1X ONCE PO ; Start 12/05/18 at 06:15; Stop 12/05/18 at 06:17; Status DC Metoprolol Tartrate (Lopressor Vial) 5 mg 1X ONCE IV Last administered on 12/05at 06:17; Start 12/05/18 at 06:15; Stop 12/05/18 at 06:17; Status DC Metoprolol Tartrate (Lopressor Vial) 5 mg 1X PRN PRN IV accelerated HTN; Start 12/05/18 at 06:15 Clonidine HCl (Catapres) 0.1 mg 1X ONCE PO Last administered on 12/05/18at 09: 00; Start 12/05/18 at 07:30; Stop 12/05/18 at 07:31; Status DC Acetaminophen (Tylenol) 650 mg PRN Q6HRS PRN PO PAIN; Start 12/05/18 at 13:30 Ascorbic Acid (Vitamin C) 500 mg DAILY PO Last administered on 12/05/18at 13:47 ; Start 12/05/18 at 14:00 Calcium/Vitamin D (Oscal D 500mg/ 200uts) 1 tab BIDWMEALS PO ; Start 12/05/18 at 17:00 Cyclosporine (Restasis) 1 drop BID OU ; Start 12/05/18 at 21:00 Ferrous Sulfate (Feosol) 325 mg DAILY PO Last administered on 12/05/18at 13:47; Start 12/05/18 at 14:00 Isosorbide Mononitrate (Imdur) 30 mg DAILY PO Last administered on 12/05/18at 13 :47; Start 12/05/18 at 14:00 Losartan Potassium (Cozaar) 50 mg BID PO ; Start 12/05/18 at 21:00 Aspirin (Children'S Aspirin) 81 mg DAILYWBKFT PO ; Start 12/06/18 at 08:00; Stop 12/06/18 at 08:00; Status DC Multivitamins/ Calcium (Thera-M Plus) 1 tab DAILY PO Last administered on at 13:47; Start 12/05/18 at 14:00 Non-Formulary Medication (Nebivolol Hcl (Bystolic)) 0.5 tab DAILY PO ; Start at 09:00; Stop 12/06/18 at 09:00; Status DC Pantoprazole Sodium (Protonix) 40 mg DAILYAC PO Last administered on 12/05/18at 13:47; Start 12/05/18 at 14:00 Pravastatin Sodium (Pravachol) 40 mg QHS PO ; Start 12/05/18 at 21:00 Oxybutynin Chloride (Ditropan) 5 mg BID PO ; Start 12/05/18 at 21:00 Metoprolol Tartrate (Lopressor) 50 mg BID PO ; Start 12/05/18 at 21:00; Stop at 21:00; Status DC Labetalol HCl (Trandate) 200 mg BID PO ; Start 12/05/18 at 21:00 Nitroglycerin (Nitrostat) 0.4 mg PRN Q5MIN PRN SL CHEST PAIN; Start 12/05/18 at 14:15; Status UNV Active Scripts Active Pantoprazole Sodium 40 Mg Tablet.dr 40 Mg PO DAILYAC Reported Cozaar (Losartan Potassium) 50 Mg Tablet 50 Mg PO BID Tylenol (Acetaminophen) 325 Mg Tablet 650 Mg PO Q6HRS PRN LAST DOSE GIVEN: DATE: YESTERDAY TIME: AT BEDTIME NEXT DOSE DUE: DATE: TODAY TIME: IF NEEDED Ferrous Sulfate 325 Mg Tablet 1 Tab PO DAILY LAST DOSE GIVEN: DATE: TODAY TIME: AM NEXT DOSE DUE: DATE: TOMORROW TIME: AM Vesicare (Solifenacin Succinate) 5 Mg Tablet 1 Tab PO QHS LAST DOSE GIVEN: DATE: YES TIME: AT BEDTIME NEXT DOSE DUE: DATE: TODAY TIME: AT BEDTIME Nitrostat (Nitroglycerin) 0.4 Mg Tab.subl 1 Tab SL UD LAST DOSE GIVEN: NOT ADMINISTERED THIS ADMISSION NEXT DOSE DUE: DATE: TIME: IF NEEDED DATE: TAKE DIRECTED TIME: Bystolic (Nebivolol Hcl) 20 Mg Tablet 0.5 Tab PO DAILY LAST DOSE GIVEN: DATE: TIME: AM NEXT DOSE DUE: DATE: TOMORROW TIME: AM Multivitamins (Multivitamin) 1 Each Capsule 1 Each PO DAILY LAST DOSE GIVEN: DATE: TIME: AM NEXT DOSE DUE: DATE: TOMORR TIME: AM Isosorbide Mononitrate Er (Isosorbide Mononitrate) 30 Mg Tab.er.24h 1 Tab PO DAILY LAST DOSE GIVEN: DATE: TIME: AM NEXT DOSE DUE: DATE: TIME: AM Restasis (Cyclosporine) 1 Each Droperette 1 Drop EACHEYE BID LAST DOSE GIVEN: DATE: TIME: AM NEXT DOSE DUE: DATE: TODAY TIME: PM Calcium 500 + Vit D 200 Tablet (Calcium Carbonate/Vitamin D3) 1 Each Tablet 1 Each PO BIDWMEALS LAST DOSE GIVEN: NOT GIVEN THIS ADMISSION NEXT DOSE DUE: DATE: TODAY TIME: PM DATE: 02/11/16 TIME: PM Aspirin 81 Mg Tab.chew 81 Mg PO DAILY LAST DOSE GIVEN: DATE: TIME: AM NEXT DOSE DUE: DATE: TIME: AM Ascorbic Acid 500 Mg Tablet 500 Mg PO DAILY LAST DOSE GIVEN: DATE: TIME: AM NEXT DOSE DUE: DATE: TOMORR TIME: AM Pravastatin Sodium 40 Mg Tablet 1 Tab PO QHS LAST DOSE GIVEN: DATE: TER TIME: AT BEDTIME NEXT DOSE DUE: DATE: TODAY TIME: AT BEDTIME Allergies: Coded Allergies: amoxicillin (Unverified Allergy, Severe, Rash, 08/26/15) tetracycline (Unverified Allergy, Severe, Rash, 08/26/15) atorvastatin (Verified Allergy, Intermediate, 02/10/16) niacin (Unverified Adverse Reaction, Mild, BLISTERS, 11/16/14) PSYCHOLOGICAL ROS: No: Hallucinations Eyes: No: Loss of vision HEENT: No: Epistaxis Respiratory: YES: Cough; No: Orthopnea, Shortness of breath Cardiovascular: yes: Chest Pain Gastrointestinal: No: Vomiting, Diarrhea Genitourinary: No: Henaturia Neurological: No: Seizures Skin: No: Rash General: Alert, Oriented X3 HEENT: Atraumatic, PERRLA Lungs: Clear to auscultation Heart: Regular rate Abdomen: Soft, No tenderness Extremities: No edema Psych/Mental Status: Mood NL VITALS Vital Signs Date Time Temp Pulse Resp B/P (MAP) Pulse Ox O2 Delivery O2 Flow Rate FiO2 12/05/18 13:47 75 190/75 12/05/18 10:30 98 Room Air 12/05/18 10:05 97.9 20 Labs Laboratory Tests Test 12/05/18 04:55 12/05/18 05:00 12/05/18 05:03 12/05/18 05:30 White Blood Count 7.6 x10^3/uL (4.0-11.0) Red Blood Count 3.76 x10^6/uL (3.50-5.40) Hemoglobin 11.6 g/dL (12.0-15.5) Hematocrit 33.8 % (36.0-47.0) Mean Corpuscular Volume 90 fL (79-100) Mean Corpuscular Hemoglobin 31 pg (25-35) Mean Corpuscular Hemoglobin Concent 34 g/dL (31-37) Red Cell Distribution Width 13.4 % (11.5-14.5) Platelet Count 172 x10^3/uL (140-400) Neutrophils (%) (Auto) 51 % (31-73) Lymphocytes (%) (Auto) 31 % (24-48) Monocytes (%) (Auto) 13 % (0-9) Eosinophils (%) (Auto) 3 % (0-3) Basophils (%) (Auto) 1 % (0-3) Neutrophils # (Auto) 3.9 x10^3uL (1.8-7.7) Lymphocytes # (Auto) 2.4 x10^3/uL (1.0-4.8) Monocytes # (Auto) 1.0 x10^3/uL (0.0-1.1) Eosinophils # (Auto) 0.3 x10^3/uL (0.0-0.7) Basophils # (Auto) 0.1 x10^3/uL (0.0-0.2) Prothrombin Time 9.9 SEC (9.4-11.4) Prothromb Time International Ratio 1.0 (0.9-1.1) Activated Partial Thromboplast Time 23 SEC (23-33) D-Dimer (Billie) 0.65 mg/L (0.00-0.50) Sodium Level 145 mmol/L (136-145) Potassium Level 3.7 mmol/L (3.5-5.1) Chloride Level 106 mmol/L (98-107) Carbon Dioxide Level 29 mmol/L (21-32) Anion Gap 10 (6-14) Blood Urea Nitrogen 34 mg/dL (7-20) Creatinine 1.7 mg/dL (0.6-1.0) Estimated GFR (Cockcroft-Gault) 29.2 Glucose Level 103 mg/dL (70-99) Lactic Acid Level 1.4 mmol/L (0.4-2.0) Calcium Level 8.8 mg/dL (8.5-10.1) Magnesium Level 1.8 mg/dL (1.8-2.4) Total Bilirubin 0.2 mg/dL (0.2-1.0) Direct Bilirubin 0.1 mg/dL (0.0-0.2) Aspartate Amino Transf (AST/SGOT) 21 U/L (15-37) Alanine Aminotransferase (ALT/SGPT) 22 U/L (14-59) Alkaline Phosphatase 81 U/L (46-116) Creatine Kinase 54 U/L (26-192) Troponin I Quantitative < 0.017 ng/mL (0-0.055) HF-Oth-L-Type Natriuretic Peptide 703 pg/mL (0-449) Total Protein 6.5 g/dL (6.4-8.2) Albumin 3.6 g/dL (3.4-5.0) Triglycerides Level 302 mg/dL (0-150) Cholesterol Level 158 mg/dL (0-200) LDL Cholesterol, Calculated 66 mg/dL (0-100) VLDL Cholesterol, Calculated 60 mg/dL (0-40) Non-HDL Cholesterol Calculated 126 mg/dL (0-129) HDL Cholesterol 32 mg/dL (40-60) Cholesterol/HDL Ratio 4.0 Lipase 345 U/L (73-393) Thyroid Stimulating Hormone (TSH) 2.690 uIU/mL (0.358-3.740) Influenza Type A (Rapid) Negative (NEGATIVE) Influenza Type B (Rapid) Negative (NEGATIVE) Group A Streptococcus Rapid Negative (NEGATIVE) Urine Collection Type Clean catch Urine Color Straw Urine Clarity Hazy Urine pH 7.0 Urine Specific [place] 1.010 Urine Protein Neg (NEG-TRACE) Urine Glucose (UA) Neg mg/dL (NEG) Urine Ketones (Stick) Neg mg/dL (NEG) Urine Blood Neg (NEG) Urine Nitrite Neg (NEG) Urine Bilirubin Neg (NEG) Urine Urobilinogen Dipstick 0.2 mg/dL (0.2 mg/dL) Urine Leukocyte Esterase Small (NEG) Urine RBC Rare /HPF (0-2) Urine WBC 1-4 /HPF (0-4) Urine Squamous Epithelial Cells Few /LPF Urine Bacteria Mod /HPF (0-FEW) Urine Opiates Screen Neg (NEG) Urine Methadone Screen Neg (NEG) Urine Barbiturates Neg (NEG) Urine Phencyclidine Screen Neg (NEG) Urine Amphetamine/Methamphetamine Neg (NEG) Urine Benzodiazepines Screen Neg (NEG) Urine Cocaine Screen Neg (NEG) Urine Cannabinoids Screen Neg (NEG) Urine Ethyl Alcohol Neg (NEG) Assessment/Plan 1. Chest pain with atypical features in a patient with known history of coronary artery disease s/p CABG. Most probably GI etiology. Myocardial infarction has been ruled out. 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 We will obtain records. 2. Accelerated hypertension: Patient claimed compliance with medications. Change metoprolol to labetalol for better control. We will obtain renal arterial duplex scan to rule out any significant renal artery stenosis. 3. Hyperlipidemia: Continue statin therapy Thank you for your consultation ELAYNE HURD MD Dec 05, 2018 14:04
[2018-12-05] MEDS ORDERED: NITROGLYCERIN SUBLINGUAL 0.4 MG BOTTLE OF 25. SL PRN (14:15)
--- NOTE | 2018-12-05 14:58 | HP ---
ADMIT DATE: 12/05/2018 HISTORY OF PRESENT ILLNESS: The patient is a 78-year-old female patient who came to the Emergency Room complaining of chest pain. She apparently is known to have esophageal stricture and hiatal hernia. The esophageal stricture was dilated at the end of 09/2018. She apparently woke up at around 3 o'clock in the morning with severe acid reflux and she was worried that she might have aspirated something in her lung. She has recurrent bouts of cough and came to the Emergency Room for further evaluation and treatment. She apparently took 2 nitroglycerin sublingually without any much improvement and therefore she came to the Emergency Room for further evaluation and treatment. She rated her pain as about 2/10 in severity. Denied any shortness of breath. Denied any nausea, vomiting, diaphoresis or radiation. PAST MEDICAL HISTORY: Significant for coronary artery disease, status post myocardial infarction, status post coronary artery bypass graft surgery in 2009, hypertension, hyperlipidemia, chronic kidney disease, osteoarthritis. The patient has hiatal hernia, esophageal stricture and senile macular degeneration. PAST SURGICAL HISTORY: Significant for coronary artery bypass graft surgery in 2009, bilateral cataract extraction, total abdominal hysterectomy, bilateral salpingo-oophorectomy, cholecystectomy, esophageal stricture dilatation done most recently on at the end of 09/2018 and she underwent multiple esophagogastroduodenoscopies as well as colonoscopy. ALLERGIES: She is allergic to AMOXICILLIN, ATORVASTATIN, TETRACYCLINE, AND NIACIN. MEDICATIONS: She is currently on the following medication: Ferrous sulfate 325 mg daily, pravastatin sodium 40 mg at bedtime, isosorbide mononitrate 30 mg once a day, nitroglycerin 0.4 mg sublingually every 5 minutes x 3. She is on nebivolol for Bystolic 10 mg daily, losartan potassium for Cozaar 50 mg twice a day, aspirin 81 mg once a day, acetaminophen 650 mg p.o. q. 6 hourly, calcium carbonate with vitamin D3 one tablet twice a day, cyclosporine for Restasis 1 drop to both eyes twice a day, Protonix 40 mg once a day. She is on VESIcare 5 mg at bedtime, ascorbic acid 500 mg daily. She is on multivitamin 1 tablet once a day. FAMILY HISTORY: She has one brother, at age of 69 because of prostate cancer. She has 5 sisters, all younger and healthy. Her father at the age of 61 because of brain cancer. Mother is , but does not know her age or the cause of her . SOCIAL HISTORY: She is , lives alone. She has one daughter and 4 sons. She does not smoke, drink alcohol or recreational drugs. She is retired from [employer]. REVIEW OF SYSTEMS: The patient denied any blurring of vision. She has bilateral cataract extraction and is known to have macular degeneration. Denied any earache, tinnitus or sensorineural deafness. Denied any nosebleeds, stuffy nose or postnasal drip. Denied any sore throat, sore tongue, toothache, hoarseness of voice. Did complain of difficulty swallowing to solids more than liquids. Denied any nausea, vomiting, diarrhea or constipation. Denied any hematemesis, melena or hematochezia. Denied any dysuria, frequency or hematuria. Did complain of chest pain, but denied any orthopnea or paroxysmal nocturnal dyspnea. Did complain of cough and was actually more worried about aspiration. PHYSICAL EXAMINATION: GENERAL: When I examined her, she looked well and was clearly in no apparent respiratory distress, slightly pale, but no jaundice, cyanosis or thyromegaly. No jugular venous distension. No lower limb edema. VITAL SIGNS: Her heart rate was 85, blood pressure on arrival was high at 202/85, temperature was 98.5, respiratory rate 20, and oxygen saturation was 96%. HEAD, EYES, EARS, NOSE, AND THROAT: Showed normocephalic, atraumatic. NECK: Supple. HEART: Showed normal first and second sounds. No gallop, rub or murmur. CHEST: Clear to auscultation. No crepitation or rhonchi. ABDOMEN: Distended, soft, nontender. No guarding or rigidity. No organomegaly. All hernial orifices intact. Bowel sounds normal. NEUROLOGIC: She is awake, alert, responding appropriately. All cranial nerves intact. EXTREMITIES: She moves extremities without difficulty. LABORATORY DATA: Showed a white cell count 7600, hemoglobin 11.6, hematocrit 33.9, MCV 90 and platelet count of 172,000. Her chemistry showed serum sodium 145, potassium 3.7, chloride 106, bicarbonate 29, anion gap of 10, BUN 34, creatinine 1.7, estimated GFR was 29 mL per minute. Her glucose was 103, lactic acid was 1.4, calcium was 8.8, magnesium was 1.8. Total bilirubin, AST, ALT, alkaline phosphatase were normal. Her total protein was 6.5, albumin was 3.6. Her serum lipase was 345. TSH was normal at 2.6. Her triglycerides were 302, total cholesterol was 158, LDL was 66, VLDL was 60, HDL cholesterol 32 and the ratio was 4. Her prothrombin time was 9.9, INR 1, aPTT 23 and D-dimer was 0.65. Urinalysis was essentially unremarkable and toxic screen was negative. Her influenza A and B as well as rapid streptococcus test was negative. Her first set of cardiac enzymes showed a troponin to be less than 0.017. PLAN: My plan is to do 2 more sets of cardiac enzymes. Consult the Cardiology team. She did have a chest x-ray, which showed that the patient's heart size is normal. Lungs are clear. No pneumothorax or pleural effusion and visualized bony thorax is within normal limits and showed that no sonographic evidence of acute DVT of the bilateral lower extremity deep veins. So basically we will do 2 more sets of cardiac enzymes, consult Cardiology and decide on further management accordingly. SOHA CAZARES MD DR: TRELL/ronnie JOB#: [id number] / [id number]
[2018-12-05 15:14] VITALS: BP 167/74
[2018-12-05] MEDS ORDERED: IPRATRPIUM/ALBUTEROL 0.5/2.5MG 3 ML NEBU. NEB PRN (15:45)
[2018-12-05] MEDS: CALCIUM CARB/VIT D3 500/200 TABLET PO SCH (17:16)
--- NOTE | 2018-12-05 17:46 | EKG ---
[address] [address] Test Date: 2018-12-05 Test Time: 04:42:44 Pat Name: ADRI SHABAZZ Department: Room: 125 A Gender: F Note Teller: JENNIFER : 1940 Requested By: KRYSTA BOJORQUEZ Order Number: [id number] Reading MD: Nir Wilburn Measurements Intervals Happy Rate: 80 P: 48 NM: 174 QRS: 31 QRSD: 80 T: 49 QT: 376 QTc: 437 Interpretive Statements SINUS RHYTHM Electronically Signed On 12-07-2018 10:55:07 SOA ENGINEER by Nir Wilburn
[2018-12-05] MEDS ORDERED: METOPROLOL TART IMMED RELEASE 50 MG TABLET PO SCH (21:00)
[2018-12-05] MEDS ORDERED: PRAVASTATIN 20 MG TABLET. PO SCH (21:00)
[2018-12-05] MEDS: OXYBUTYNIN CHLORIDE 5 MG TABLET PO SCH (21:45)
[2018-12-05] MEDS: cycloSPORINE 0.05% OPTH 1 DROP DROPERETTE OU SCH (21:45)
[2018-12-05] MEDS: LABETALOL HCL 200 MG TABLET PO SCH (21:45)
[2018-12-05] MEDS: LOSARTAN 50 MG TABLET. PO SCH (21:46)
[2018-12-05 23:13] VITALS: BP 151/65
[2018-12-06 03:30] VITALS: BP_SYST 189
[2018-12-06 07:02] VITALS: BP 175/69
[2018-12-06 07:14] LABS: BASO % 1 % (0-3); EOS # 0.2 x10^3/uL (0.0-0.7); EOS % 3 % (0-3); HEMATOCRIT 30.8 % (36.0-47.0); HEMOGLOBIN 10.6 g/dL (12.0-15.5); LYMPH # 1.9 x10^3/uL (1.0-4.8); LYMPH % 30 % (24-48); MEAN CORPUSCULAR HEMOGLOBIN 31 pg (25-35); MEAN CORPUSCULAR HGB CONC 34 g/dL (31-37); MEAN CORPUSCULAR VOLUME 90 fL (79-100); MONO # 0.7 x10^3/uL (0.0-1.1); MONO % 11 % (0-9); NEUT # 3.4 x10^3uL (1.8-7.7); NEUT % 55 % (31-73); PLATELET COUNT 155 x10^3/uL (140-400); RED BLOOD COUNT 3.43 x10^6/uL (3.50-5.40); RED CELL DISTRIBUTION WIDTH 13.2 % (11.5-14.5); WHITE BLOOD COUNT 6.1 x10^3/uL (4.0-11.0)
[2018-12-06 07:23] LABS: CALCIUM 8.8 mg/dL (8.5-10.1); CREATININE 1.6 mg/dL (0.6-1.0); GFR 31.3; POTASSIUM 3.7 mmol/L (3.5-5.1)
[2018-12-06] MEDS ORDERED: ASPIRIN 81 MG TAB.CHEW PO SCH ×2 (08:00)
[2018-12-06] MEDS: cycloSPORINE 0.05% OPTH 1 DROP DROPERETTE OU SCH (08:58)
[2018-12-06] MEDS: CALCIUM CARB/VIT D3 500/200 TABLET PO SCH (08:59)
[2018-12-06] MEDS: LOSARTAN 50 MG TABLET. PO SCH (08:59)
[2018-12-06] MEDS: FERROUS SULFATE 325 MG TABLET. PO SCH (08:59)
[2018-12-06] MEDS: PANTOPRAZOLE 40 MG TABLET. PO SCH (08:59)
[2018-12-06] MEDS: ASCORBIC ACID 500 MG TABLET PO SCH (08:59)
[2018-12-06] MEDS: LABETALOL HCL 200 MG TABLET PO SCH (08:59)
[2018-12-06] MEDS: MULTIVITAMIN with MINERAL TABLET. PO SCH (08:59)
[2018-12-06] MEDS: OXYBUTYNIN CHLORIDE 5 MG TABLET PO SCH (09:00)
[2018-12-06] MEDS: ISOSORBIDE MONONITRATE ER 30 MG TAB.ER.24H PO SCH (09:00)
[2018-12-06] MEDS ORDERED: NEBIVOLOL HCL PO SCH (09:00)
--- NOTE | 2018-12-06 09:31 | RAD ---
Renal ultrasound with Doppler HISTORY: Stage II C KV. Hypertension. Renal artery stenosis. FINDINGS: Right kidney measures 9.2 cm length, left kidney measures 10.2 cm length. No hydronephrosis. No evidence of renal cyst. No evidence of shadowing calculus. Right renal resistive indices range from 0.75-0.84. Right renal artery/aorta ratio 0.9 Left renal resistive indices range from 0.76-0.84. Left renal artery/aorta ratio is 0.6 Atherosclerotic changes are identified at the aorta. Urinary bladder volume is 256 cc prevoid, and 49 cc post void. IMPRESSION: No sonographic abnormalities identified. No sonographic evidence of critical renal artery stenosis. Electronically signed by: Sudeep Irwin MD (12/06/2018 9:27 AM) [facility]
[2018-12-06] MEDS ORDERED: LABE200T4 PO (10:54)
--- NOTE | 2018-12-06 11:10 | NUR ---
pt discharged from hospital. iv d/c'd instructions and prescriptions provided to pt, pt verbalized understanding. pt awaiting transportation. will ctm.
[2018-12-06 11:27] VITALS: BP 125/72
--- NOTE | 2018-12-06 11:34 | DS ---
DATE OF DISCHARGE: 12/06/2018 HISTORY OF PRESENT ILLNESS: The patient is a 78-year-old female patient, who was admitted with chest pain and accelerated hypertension. She apparently is known to have hiatal hernia and esophageal stricture, status post dilatation in 09/2018. Apparently woke up in the morning with retrosternal burning pain similar to her acid reflux, but the pain persisted and became pressure-like sensation, hence she was concerned. She tried nitroglycerin sublingually without improvement and therefore she came to the Emergency Room. Initial evaluation showed that her cardiac enzymes and EKG was unremarkable and was admitted to do 2 more sets of cardiac enzyme and to consult the internal sales. She did have 2 more sets of cardiac enzymes that ruled out myocardial infarction. Her fasting lipid profile showed that her LDL was 66 and HDL was 32. Her Bystolic was discontinued and labetalol 200 mg twice a day were added. Her blood pressure is much improved, although not yet optimally controlled. When she arrived systolic pressure was 212 and diastolic was 94. This morning, her blood pressure was 175/69. The patient denied any further episode of chest pain. Denied any chest pressure or shortness of breath, orthopnea or paroxysmal nocturnal dyspnea. PHYSICAL EXAMINATION: GENERAL: When I examined her, she looked pale, but no jaundice, cyanosis or thyromegaly. No jugular venous distention. No limb edema. VITAL SIGNS: Her heart rate was 64, blood pressure was 175/69, temperature was 97.4, respiratory rate was 18 and oxygen saturation was 96%. HEAD, EYES, EARS, NOSE AND THROAT: Showed normocephalic, atraumatic. NECK: Supple. HEART: Showed normal first and second heart sounds. No gallop, rub or murmur. CHEST: Clear to auscultation. No crepitation or rhonchi. ABDOMEN: Distended, soft, nontender. NEUROLOGIC: She was awake, alert, responding appropriately. All cranial nerves intact. EXTREMITIES: She moves extremities without difficulty. She ambulates without assistance or assistive devices. LABORATORY DATA: This morning showed a serum sodium 143, potassium 3.7, chloride 107, bicarbonate 30, anion gap of 6, BUN 29, creatinine 1.6, estimated GFR was 31 mL per minute. Her glucose 103, calcium was 8.8. Her white cell count was 6100, hemoglobin 11, hematocrit 31, MCV 90 and platelet count 155,000. Her influenza A and B were negative. DISCHARGE MEDICATIONS: She was discharged home to continue on labetalol 200 mg twice a day. Her Bystolic was discontinued. Should continue on her ferrous sulfate 325 mg once a day, pravastatin 40 mg at bedtime, isosorbide mononitrate 30 mg daily, nitroglycerin 0.4 mg sublingually every 5 minutes, losartan potassium 50 mg twice a day. She is on aspirin 81 mg once a day, acetaminophen 650 mg every 6 hours, calcium carbonate with vitamin D3 one tablet twice a day, cyclosporine for Restasis 1 drop to both eyes twice a day, Protonix 40 mg once a day, solifenacin for VESIcare 5 mg at bedtime, ascorbic acid 500 mg daily and multivitamin 1 tablet once a day. FINAL DISCHARGE DIAGNOSES: Chest pain, myocardial infarction ruled out. The patient has 3 sets of cardiac enzymes that were normal. Her EKG showed no ischemic changes, axillary to have hypertension, much improved, although not yet optimally controlled, hyperlipidemia, overactive bladder, coronary artery disease status post coronary artery bypass graft surgery. The patient was advised to follow with her primary care physician to make more adjustment of her antihypertensive medications and to follow with Dr. Hedrick, her primary internal sales to set an outpatient nuclear stress test. For her esophageal stricture she has to make an appointment with her chief projectionist also she might require more stretching of her esophagus. SOHA CAZARES MD DR: TRELL/ronnie JOB#: [id number] / [id number]
--- NOTE | 2018-12-06 11:37 | NUR ---
pt off the unit ambulatory.
== END 2018-12-06 11:39 | disposition home or self-care (01) | DRG 313 ==
LOC: ER 04:27 → 1 SOUTH 06:00
PROVIDERS: ADMIT Internal Medicine; ATTEND Internal Medicine
DX: R07.89 Other chest pain (principal); E78.5 Hyperlipidemia, unspecified; H35.30 Unspecified macular degeneration; I12.9 Hypertensive chronic kidney disease with stage 1 through stage 4 chronic kidney disease, or unspecified chronic kidney disease; I25.10 Atherosclerotic heart disease of native coronary artery without angina pectoris; K21.9 Gastro-esophageal reflux disease without esophagitis; I25.2 Old myocardial infarction; K22.2 Esophageal obstruction; K31.7 Polyp of stomach and duodenum; K44.9 Diaphragmatic hernia without obstruction or gangrene; M19.90 Unspecified osteoarthritis, unspecified site; N18.9 Chronic kidney disease, unspecified; N20.0 Calculus of kidney; Z80.8 Family history of malignant neoplasm of other organs or systems; Z82.49 Family history of ischemic heart disease and other diseases of the circulatory system; Z90.710 Acquired absence of both cervix and uterus; Z87.442 Personal history of urinary calculi; Z95.1 Presence of aortocoronary bypass graft; Z98.41 Cataract extraction status, right eye; Z98.42 Cataract extraction status, left eye
CPT/HCPCS: 36415; 71045; 76770; 80048; 80061; 80076; 80307; 81001; 82550; 83605; 83690; 83735; 83880; 84443; 84484; 85025; 85379; 85610; 85730; 87040; 87070; 87086; 87804; 87880; 93005; 93970; 96361; 96372; 96374; 96375; J1650; J2405; J3490; 99285-25; J7030

== ENCOUNTER → 2019-05-05 | Outpatient (CLI) | payer MEDICARE, OTHER ==
[~2019-05-05] MED LIST changes: +LABE200T4 PO; +LOSA50TA86 PO; +OMEP20CA10 PO; -OMEP20CA9 PO
--- NOTE | 2019-05-06 15:40 | RAD ---
EXAM: MAMMO CAROLINE SCREENING BILATERAL HISTORY: routine screening evaluation. COMPARISON: 04/13/2018, 08/30/2016 Bilateral CC and MLO views of the breasts were performed. Bilateral breast tomosynthesis was performed in CC and MLO projections. This study was interpreted with the benefit of Computerized Aided Detection (CAD). Breast Density: The breast parenchyma is primarily fatty replaced. Breast parenchyma level density A. FINDINGS: Benign calcifications are grossly stable. No suspicious masses, microcalcifications or architectural distortion is present to suggest malignancy in either breast. The visualized axillae are unremarkable. IMPRESSION: No mammographic evidence of malignancy. BI-RADS CATEGORY: 2 BENIGN FINDING(S) RECOMMENDED FOLLOW-UP: 12M 12 MONTH FOLLOW-UP Annual screening mammography is recommended, unless clinically indicated sooner based on symptoms or change in physical exam. PQRS compliance statement: Patient information was entered into a reminder system with a target due date for the next mammogram. Mammography is a sensitive method for finding small breast cancers, but it does not detect them all and is not a substitute for careful clinical examination. A negative mammogram does not negate a clinically suspicious finding and should not result in delay in biopsying a clinically suspicious abnormality. "Our facility is accredited by the [employer] Mammography Program." MTDD
== END | disposition home or self-care (01) ==
LOC: MAMMO 09:11
PROVIDERS: ATTEND Physician Assistant Medical
DX: Z12.31 Encounter for screening mammogram for malignant neoplasm of breast (principal)
CPT/HCPCS: 77063; 77067

== ENCOUNTER → 2019-07-09 | Outpatient (CLI) | payer MEDICARE, OTHER ==
[~2019-07-09] MED LIST changes: -NITR0.4T SL; +NITR0.4T24 SL
[2019-07-09 15:12] LABS: BASO # 0.1 x10^3/uL (0.0-0.2); BASO % 1 % (0-3); EOS # 0.2 x10^3/uL (0.0-0.7); EOS % 3 % (0-3); HEMATOCRIT 30.4 % (36.0-47.0); HEMOGLOBIN 10.4 g/dL (12.0-15.5); LYMPH # 2.3 x10^3/uL (1.0-4.8); LYMPH % 31 % (24-48); MEAN CORPUSCULAR HEMOGLOBIN 31 pg (25-35); MEAN CORPUSCULAR HGB CONC 34 g/dL (31-37); MEAN CORPUSCULAR VOLUME 90 fL (79-100); MONO # 0.8 x10^3/uL (0.0-1.1); MONO % 11 % (0-9); NEUT # 4.1 x10^3uL (1.8-7.7); NEUT % 55 % (31-73); PLATELET COUNT 177 x10^3/uL (140-400); RED CELL DISTRIBUTION WIDTH 13.8 % (11.5-14.5); WHITE BLOOD COUNT 7.5 x10^3/uL (4.0-11.0)
[2019-07-09 15:24] LABS: ALBUMIN 3.5 g/dL (3.4-5.0); CALCIUM 8.8 mg/dL (8.5-10.1); CREATININE 2.1 mg/dL (0.6-1.0); GFR 22.9; PHOSPHORUS 3.5 mg/dL (2.6-4.7); POTASSIUM 3.9 mmol/L (3.5-5.1)
[2019-07-10 05:10] LABS: CREATININE PTH 1.86 mg/dL (0.57-1.00); PTH INTACT 45 pg/mL (15-65)
== END | disposition home or self-care (01) ==
LOC: LAB 13:32
PROVIDERS: ATTEND Internal Medicine Nephrology
DX: I12.9 Hypertensive chronic kidney disease with stage 1 through stage 4 chronic kidney disease, or unspecified chronic kidney disease (principal); N18.2 Chronic kidney disease, stage 2 (mild); D63.1 Anemia in chronic kidney disease; N20.0 Calculus of kidney; R32 Unspecified urinary incontinence
CPT/HCPCS: 36415; 80069; 82728; 83540; 83550; 83970; 85025

== ENCOUNTER → 2019-12-01 | Outpatient (CLI) | payer MEDICARE, OTHER ==
[~2019-12-01] MED LIST changes: -OMEP20CA10 PO; +OMEP20CA16 PO; +OMEP40CA45 PO; -OMEP40CA5 PO
--- NOTE | 2019-12-01 13:30 | RAD ---
EXAM: Chest, 2 views. HISTORY: Cough. COMPARISON: 12/05/2018. FINDINGS: 2 views of chest are obtained. There is no infiltrate, pleural effusion or pneumothorax. There is stable enlargement of the cardiac silhouette and evidence of prior median sternotomy. There is a small hiatal hernia. There is bilateral basilar atelectasis or scarring. IMPRESSION: No acute pulmonary finding. Electronically signed by: Dilcia Wall MD (12/01/2019 1:27 PM) [facility]
== END | disposition home or self-care (01) ==
LOC: PMG 11:24
PROVIDERS: ATTEND Registered Nurse
DX: R05 Cough (principal); K44.9 Diaphragmatic hernia without obstruction or gangrene
CPT/HCPCS: 71046

== ENCOUNTER → 2020-03-08 | Outpatient (CLI) | payer MEDICARE, OTHER ==
[2020-03-08 13:15] LABS: BASO # 0.1 x10^3/uL (0.0-0.2); BASO % 1 % (0-3); EOS # 0.2 x10^3/uL (0.0-0.7); EOS % 3 % (0-3); HEMATOCRIT 34.9 % (36.0-47.0); HEMOGLOBIN 11.6 g/dL (12.0-15.5); LYMPH % 36 % (24-48); MEAN CORPUSCULAR HEMOGLOBIN 30 pg (25-35); MEAN CORPUSCULAR HGB CONC 33 g/dL (31-37); MEAN CORPUSCULAR VOLUME 90 fL (79-100); MONO # 0.7 x10^3/uL (0.0-1.1); MONO % 12 % (0-9); NEUT # 2.6 x10^3uL (1.8-7.7); NEUT % 48 % (31-73); PLATELET COUNT 202 x10^3/uL (140-400); RED BLOOD COUNT 3.86 x10^6/uL (3.50-5.40); WHITE BLOOD COUNT 5.5 x10^3/uL (4.0-11.0)
[2020-03-08 13:19] LABS: ALBUMIN 3.8 g/dL (3.4-5.0); CALCIUM 9.7 mg/dL (8.5-10.1); CREATININE 1.8 mg/dL (0.6-1.0); GFR 27.3; PHOSPHORUS 3.2 mg/dL (2.6-4.7); POTASSIUM 3.8 mmol/L (3.5-5.1)
[2020-03-09 06:07] LABS: CALCIUM PTH 9.7 mg/dL (8.7-10.3); CREATININE PTH 1.67 mg/dL (0.57-1.00); PTH INTACT 26 pg/mL (15-65)
== END ==
LOC: LAB 11:43
PROVIDERS: ATTEND Nurse Practitioner Adult Health
DX: I12.9 Hypertensive chronic kidney disease with stage 1 through stage 4 chronic kidney disease, or unspecified chronic kidney disease (principal); N18.3 Chronic kidney disease, stage 3 (moderate); D63.1 Anemia in chronic kidney disease; R32 Unspecified urinary incontinence; N20.0 Calculus of kidney; I49.9 Cardiac arrhythmia, unspecified
CPT/HCPCS: 36415; 80069; 82728; 83540; 83550; 83970; 85025

== ENCOUNTER → 2020-04-14 | Outpatient (CLI) | payer MEDICARE, OTHER | LOC: LAB 10:39 | PROVIDERS: ATTEND Internal Medicine Cardiovascular Disease | DX: I25.119 Atherosclerotic heart disease of native coronary artery with unspecified angina pectoris (principal) | CPT/HCPCS: 80061 ==

== ENCOUNTER → 2020-04-18 | Outpatient (CLI) | payer MEDICARE, OTHER ==
[~2020-04-18] MED LIST changes: +LOSA100T14 PO; +LOVA40TA2 PO; -PANT40TA5 PO; +PANT40TA6 PO; +RANO500T2 PO; +VIT1TABL34 PO
--- NOTE | 2020-04-18 16:14 | RAD ---
PROCEDURE: KNEE BILAT 3V STUDY DATE: 04/18/2020 CLINICAL INDICATION / HISTORY: Reason: BILATERAL KNEE PAIN / Spl. Instructions: / History: . TECHNIQUE: AP, lateral, and tunnel views of the right and left knees. COMPARISON: 03/25/2018 left knee x-ray FINDINGS: Mild demineralization. No fracture, malalignment or aggressive osseous lesions. Osteophytic spurring on the medial femoral condyle, lateral femoral condyle, and lateral tibial plateau is present along with spurring of the superior patella pole. This is present bilaterally but more conspicuous on the right. There is marked patellofemoral compartment joint space narrowing as well as less profound mild medial and lateral joint space narrowing in the knee. Multiple ossified loose bodies are present in the right knee. No definite loose body on the left.. Arterial calcifications are noted. No significant joint effusion. IMPRESSION: Multi compartmental bilateral knee degenerative changes. No fracture or malalignment noted.. Electronically signed by: Salvador Shell MD (04/18/2020 4:11 PM) [id number]
== END ==
LOC: DXRAD 12:36
PROVIDERS: ATTEND Physician Assistant
DX: M17.0 Bilateral primary osteoarthritis of knee (principal); M23.41 Loose body in knee, right knee
CPT/HCPCS: 73562

== ENCOUNTER → 2020-05-30 | Outpatient (CLI) | payer MEDICARE, OTHER ==
[~2020-05-30] MED LIST changes: -LOSA100T14 PO; -LOVA40TA2 PO; +PANT40TA5 PO; -PANT40TA6 PO; -RANO500T2 PO; -VIT1TABL34 PO
--- NOTE | 2020-05-31 16:50 | RAD ---
EXAM: BILATERAL DIGITAL 3D SCREENING MAMMOGRAPHY. HISTORY: Routine mammographic screening. TECHNIQUE: Bilateral digital 3D and tomographic images were obtained in CC and MLO projections. Computer-aided detection was applied. COMPARISON: 05/05/2019. COMPOSITION: A. The breasts are almost entirely fatty. FINDINGS: There are no suspicious masses, microcalcifications or architectural distortion. Bilateral calcifications are stable chronically and likely benign. The parenchymal pattern is stable. BI-RADS CATEGORY 2: Benign. RECOMMENDATION: 1. Routine screening mammography in one year. If mammography demonstrates dense breast tissue (heterogenously dense or extremely dense, category C or D), which could hide abnormalities, and if other risk factors for breast cancer have been identified, supplemental screening tests that may be suggested by the ordering physician may be of benefit. Dense breast tissue, in and of itself, is a relatively common condition. Therefore, this information is not provided to cause undue concern, but rather to raise awareness and to promote discussion with the referring physician regarding the presence of other risk factors, in addition to dense breast tissue. The results of this mammography examination is provided to the patient and referring physician. The patient should contact their referring physician if any questions or concerns exist regarding this report. PQRS compliance statement - Patient information was entered into a reminder system with a target due date for the next mammogram. "Our facility is accredited by the [employer] Mammography Program." Electronically signed by: Whitney Zuniga MD (05/31/2020 4:47 PM) [id number]
== END | disposition home or self-care (01) ==
LOC: MAMMO 11:37
PROVIDERS: ATTEND Physician Assistant Medical
DX: Z12.31 Encounter for screening mammogram for malignant neoplasm of breast (principal); N64.89 Other specified disorders of breast
CPT/HCPCS: 77063; 77067

== ENCOUNTER → 2020-06-27 | Outpatient (CLI) | payer MEDICARE, OTHER ==
[~2020-06-27] MED LIST changes: +LOSA100T14 PO; +LOVA40TA2 PO; -PANT40TA5 PO; +PANT40TA6 PO; +RANO500T2 PO; +VIT1TABL34 PO
== END | disposition home or self-care (01) ==
LOC: LAB 13:15
PROVIDERS: ATTEND Registered Nurse
DX: Z01.812 Encounter for preprocedural laboratory examination (principal); R13.10 Dysphagia, unspecified; K21.9 Gastro-esophageal reflux disease without esophagitis; Z20.828 Contact with and (suspected) exposure to other viral communicable diseases
CPT/HCPCS: U0003-CS

== ENCOUNTER → 2020-06-30 | Day surgery (SDC) | payer MEDICARE, OTHER ==
[~2020-06-30] MED LIST changes: +IPRATRPIUM/ALBUTEROL 0.5/2.5MG 3 ML NEBU. NEB PRN; +IV RINGERS SOLUTION,LACTATED 1,000 ML IV SCH; +LIDOCAINE 2% PF 5 ML VIAL. ONE; +MIDAZOLAM HCL PF 2 MG/2 ML VIAL. IV ONE; +ONDANSETRON PF 4 MG/2 ML VIAL. IV PRN; +PROPOFOL 10,000 MCG/ML (20ML) VIAL IV ONE
[2020-06-30 12:37] VITALS: BP 134/68
--- NOTE | 2020-07-03 19:07 | PATHOLOGY ---
[facility] Accession Number: [id number] . 01 Material submitted: . PART A: stomach - ANTRUM GASTRITIS PART B: stomach - BODY OF STOMACH ULCER. Modifiers: body . 02 Diagnosis: A. Gastric biopsies, antrum, - Mild acute and chronic gastritis. . B. Gastric biopsy, body of stomach ulcer: - Superficial mucosal edema, congestion, and mild chronic inflammation. . (JPM:george; 07/03/2020) MBR 07/03/2020 1603 Local . 02 Comment: Sections of the gastric antral biopsy show congestion and mild acute and chronic inflammation. A properly controlled immunoperoxidase stain for Helicobacter is negative for Helicobacter organisms. There is no evidence of malignancy. . Sections of the body of stomach ulcer biopsy reveal gastric body mucosa showing superficial mucosal edema, congestion, and mild chronic inflammation. A properly controlled immunoperoxidase stain for Helicobacter is negative for Helicobacter organisms. There is no evidence of malignancy. . (JPM:george; 07/03/2020) . Special stain performed: Immunoperoxidase stain for Helicobacter on A1 and B1. . 02 Electronically signed: . Dereje Murillo MD, Pathologist NPI- [id number] . 01 Gross description: . A. Received in formalin labeled "Bertha Morales, antrum gastritis" are two powers-brown soft tissue fragments measuring in aggregate 0.7 x 0.2 x 0.1 cm. The specimen is submitted entirely in A1. . B. Received in formalin labeled "Lowe, Bertha, body of stomach ulcer" is a fragment of powers-brown soft tissue measuring 0.4 x 0.3 x 0.1 cm. The specimen is submitted entirely in B1. ([facility]; 07/02/2020) SYC/SYC 07/02/2020 1231 Local . 02 Pathologist provided ICD-10: K29.50 . 02 CPT . 292155, 445325, [id number] Specimen Comment: A courtesy copy of this report has been sent to [phone], [phone] Specimen Comment: [phone] Specimen Comment: Report sent to / DR WALDROP Performed at: [address] [facility], [place], [place] [id number] MD Rohan Weiner MD Phone: [phone] Performed at: [facility] [address] [place], [place] [id number] MD Dereje Murillo MD Phone: [phone]
== END | disposition home or self-care (01) ==
LOC: SURG 10:14
PROVIDERS: ATTEND Internal Medicine Gastroenterology
DX: R10.13 Epigastric pain (principal); K22.2 Esophageal obstruction; K29.50 Unspecified chronic gastritis without bleeding; K21.9 Gastro-esophageal reflux disease without esophagitis; K31.89 Other diseases of stomach and duodenum; I49.9 Cardiac arrhythmia, unspecified; E78.00 Pure hypercholesterolemia, unspecified; K44.9 Diaphragmatic hernia without obstruction or gangrene; I25.10 Atherosclerotic heart disease of native coronary artery without angina pectoris; M19.90 Unspecified osteoarthritis, unspecified site; I12.9 Hypertensive chronic kidney disease with stage 1 through stage 4 chronic kidney disease, or unspecified chronic kidney disease; N18.3 Chronic kidney disease, stage 3 (moderate); Z90.49 Acquired absence of other specified parts of digestive tract; Z90.710 Acquired absence of both cervix and uterus; Z98.890 Other specified postprocedural states; Z79.899 Other long term (current) drug therapy; Z88.8 Allergy status to other drugs, medicaments and biological substances; Z79.82 Long term (current) use of aspirin; Z91.041 Radiographic dye allergy status; Z88.1 Allergy status to other antibiotic agents
CPT/HCPCS: 43239; 43450; 88305; 88342; J2001; J2704; J7120

== ENCOUNTER → 2020-09-06 | Outpatient (CLI) | payer MEDICARE, OTHER ==
[2020-06-30 12:37] VITALS: BP 134/68
[~2020-09-06] MED LIST changes: +AMLO-186 PO; -AMLO5TAB10 PO; -IPRATRPIUM/ALBUTEROL 0.5/2.5MG 3 ML NEBU. NEB PRN; -IV RINGERS SOLUTION,LACTATED 1,000 ML IV SCH; -LIDOCAINE 2% PF 5 ML VIAL. ONE; -MIDAZOLAM HCL PF 2 MG/2 ML VIAL. IV ONE; -ONDANSETRON PF 4 MG/2 ML VIAL. IV PRN; -PROPOFOL 10,000 MCG/ML (20ML) VIAL IV ONE
[2020-09-06 14:20] LABS: BASO # 0.1 x10^3/uL (0.0-0.2); BASO % 1 % (0-3); EOS # 0.3 x10^3/uL (0.0-0.7); EOS % 5 % (0-3); HEMATOCRIT 34.1 % (36.0-47.0); LYMPH # 1.8 x10^3/uL (1.0-4.8); LYMPH % 25 % (24-48); MEAN CORPUSCULAR HEMOGLOBIN 29 pg (25-35); MEAN CORPUSCULAR HGB CONC 32 g/dL (31-37); MEAN CORPUSCULAR VOLUME 90 fL (79-100); MONO # 0.7 x10^3/uL (0.0-1.1); MONO % 10 % (0-9); NEUT # 4.2 x10^3uL (1.8-7.7); NEUT % 59 % (31-73); PLATELET COUNT 242 x10^3/uL (140-400); RED CELL DISTRIBUTION WIDTH 13.4 % (11.5-14.5)
[2020-09-06 14:33] LABS: ALBUMIN 3.7 g/dL (3.4-5.0); CALCIUM 9.3 mg/dL (8.5-10.1); GFR 24.2; PHOSPHORUS 3.6 mg/dL (2.6-4.7); POTASSIUM 3.9 mmol/L (3.5-5.1)
[2020-09-07 01:07] LABS: CALCIUM PTH 9.8 mg/dL (8.7-10.3); CREATININE PTH 1.78 mg/dL (0.57-1.00); PTH INTACT 36 pg/mL (15-65)
== END ==
LOC: DXRAD 13:34
PROVIDERS: ATTEND Internal Medicine Nephrology
DX: I12.9 Hypertensive chronic kidney disease with stage 1 through stage 4 chronic kidney disease, or unspecified chronic kidney disease (principal); D63.1 Anemia in chronic kidney disease; N20.0 Calculus of kidney; N18.30 Chronic kidney disease, stage 3 unspecified; I49.9 Cardiac arrhythmia, unspecified; R32 Unspecified urinary incontinence
CPT/HCPCS: 36415; 80069; 82728; 83540; 83550; 83970; 85025

== ENCOUNTER → 2020-10-17 | Outpatient (CLI) | payer MEDICARE, OTHER ==
[2020-06-30 12:37] VITALS: BP 134/68
[~2020-10-17] MED LIST changes: +APIX2.5T PO; +CALC1CAP8 PO; +CALC1TAB PO; +FERR-36 PO; -ISOS30TA4 PO; +ISOS30TA68 PO; +LATA2.5D2 EACHEYE; +METO25TA2 PO; -OMEP40CA45 PO; +OMEP40CA7 PO; +PRAV80TA2 PO; +SOLI10TA2 PO; +SUCR1TAB PO; +WARF-31 PO
== END ==
LOC: LAB 13:39
PROVIDERS: ATTEND Nurse Anesthetist, Certified Registered
DX: Z01.812 Encounter for preprocedural laboratory examination (principal); Z20.828 Contact with and (suspected) exposure to other viral communicable diseases
CPT/HCPCS: U0003

== ENCOUNTER → 2020-10-20 | Day surgery (SDC) | payer MEDICARE, OTHER ==
[~2020-10-20] MED LIST changes: -APIX2.5T PO; -CALC1TAB PO; +IPRATRPIUM/ALBUTEROL 0.5/2.5MG 3 ML NEBU. NEB PRN; +ISOS30TA4 PO; -ISOS30TA68 PO; +IV RINGERS SOLUTION,LACTATED 1,000 ML IV SCH; +LIDOCAINE 2% PF 5 ML VIAL. ONE; +MIDAZOLAM HCL PF 2 MG/2 ML VIAL. IV ONE; +OMEP40CA45 PO; -OMEP40CA7 PO; +ONDANSETRON PF 4 MG/2 ML VIAL. IV PRN; -PRAV80TA2 PO; +PROPOFOL 10,000 MCG/ML (20ML) VIAL IV ONE; -SUCR1TAB PO; -WARF-31 PO
--- NOTE | 2020-10-20 11:54 | NUR ---
patient chewing gum for dry mouth, had patient spit it out will discuss with anesthesia
[2020-10-20 13:30] VITALS: BP 131/72
--- NOTE | 2020-10-26 09:30 | PATHOLOGY ---
[facility] Accession Number: [id number] . 01 Material submitted: . gastrointestinal site - GASTRIC BIOPSY ULCER BODY OF STOMACH . 01 Clinical history: . HISTORY OF ULCER EGD . 02 Diagnosis: Gastric biopsies, gastric body ulcer: - Slight chronic and focal acute inflammation with reactive superficial epithelial hyperplastic changes. LBQ 10/25/2020 1011 Local . 02 Comment: Sections of the gastric biopsy reveal segments of gastric body mucosa showing slight chronic and focal acute inflammation with reactive superficial epithelial hyperplastic changes. A properly controlled immunoperoxidase stain for Helicobacter is negative for Helicobacter organisms. There is no evidence of malignancy. (JPM/db; 10/25/2020) . Special stain performed: Immunoperoxidase stain for Helicobacter . 02 Electronically signed: . Dereje Murillo MD, Pathologist NPI- [id number] . 01 Gross description: . The specimen is received in formalin, labeled "Bertha Morales, gastric biopsy of ulcer body of stomach". Received are two segments of pale powers soft tissue ranging in size from 0.3 to 0.6 cm in maximum dimensions. The specimen is submitted entirely in cassette A1. (CAA; 10/24/2020) QAC/QAC 10/24/2020 1659 Local . 02 Pathologist provided ICD-10: K29.50 . 02 CPT . 101631, [id number] Specimen Comment: A courtesy copy of this report has been sent to [phone] Specimen Comment: [phone] Specimen Comment: Report sent to / DR WALDROP Specimen Comment: A duplicate report has been generated due to demographic updates. Performed at: 01 [facility] [address], [place] [id number] MD Cj Dsouza MD Phone: [phone] Performed at: [address] [id number] MD Dereje Murillo MD Phone: [phone]
== END | disposition home or self-care (01) ==
LOC: SURG 11:17
PROVIDERS: ATTEND Internal Medicine Gastroenterology
DX: R13.10 Dysphagia, unspecified (principal); K25.7 Chronic gastric ulcer without hemorrhage or perforation; K44.9 Diaphragmatic hernia without obstruction or gangrene; K22.2 Esophageal obstruction; K29.50 Unspecified chronic gastritis without bleeding; I10 Essential (primary) hypertension; Z98.42 Cataract extraction status, left eye; I12.9 Hypertensive chronic kidney disease with stage 1 through stage 4 chronic kidney disease, or unspecified chronic kidney disease; N18.30 Chronic kidney disease, stage 3 unspecified; E78.00 Pure hypercholesterolemia, unspecified; D50.9 Iron deficiency anemia, unspecified; M19.90 Unspecified osteoarthritis, unspecified site; I25.119 Atherosclerotic heart disease of native coronary artery with unspecified angina pectoris; K21.9 Gastro-esophageal reflux disease without esophagitis; M17.0 Bilateral primary osteoarthritis of knee; Z90.49 Acquired absence of other specified parts of digestive tract; Z88.6 Allergy status to analgesic agent; Z88.8 Allergy status to other drugs, medicaments and biological substances; Z91.041 Radiographic dye allergy status; Z79.899 Other long term (current) drug therapy; Z79.82 Long term (current) use of aspirin; Z98.890 Other specified postprocedural states; Z88.1 Allergy status to other antibiotic agents; Z82.49 Family history of ischemic heart disease and other diseases of the circulatory system; Z80.8 Family history of malignant neoplasm of other organs or systems; Z80.9 Family history of malignant neoplasm, unspecified; Z95.1 Presence of aortocoronary bypass graft; Z87.442 Personal history of urinary calculi; Z85.3 Personal history of malignant neoplasm of breast; Z90.710 Acquired absence of both cervix and uterus; Z86.2 Personal history of diseases of the blood and blood-forming organs and certain disorders involving the immune mechanism
CPT/HCPCS: 43239; 43450; J2001; J2704; J7120

== ENCOUNTER → 2020-12-15 | Outpatient (CLI) | payer MEDICARE, OTHER ==
[2020-10-20 13:30] VITALS: BP 131/72
[~2020-12-15] MED LIST changes: -IPRATRPIUM/ALBUTEROL 0.5/2.5MG 3 ML NEBU. NEB PRN; -ISOS30TA4 PO; +ISOS30TA68 PO; -IV RINGERS SOLUTION,LACTATED 1,000 ML IV SCH; -LIDOCAINE 2% PF 5 ML VIAL. ONE; -MIDAZOLAM HCL PF 2 MG/2 ML VIAL. IV ONE; -ONDANSETRON PF 4 MG/2 ML VIAL. IV PRN; -PROPOFOL 10,000 MCG/ML (20ML) VIAL IV ONE
[2020-12-15 13:09] LABS: BASO # 0.1 x10^3/uL (0.0-0.2); BASO % 2 % (0-3); EOS # 0.3 x10^3/uL (0.0-0.7); EOS % 4 % (0-3); HEMATOCRIT 28.1 % (36.0-47.0); HEMOGLOBIN 9.2 g/dL (12.0-15.5); LYMPH # 1.6 x10^3/uL (1.0-4.8); LYMPH % 23 % (24-48); MEAN CORPUSCULAR HEMOGLOBIN 28 pg (25-35); MEAN CORPUSCULAR HGB CONC 33 g/dL (31-37); MEAN CORPUSCULAR VOLUME 87 fL (79-100); MONO % 14 % (0-9); NEUT # 3.8 x10^3uL (1.8-7.7); NEUT % 57 % (31-73); PLATELET COUNT 262 x10^3/uL (140-400); RED BLOOD COUNT 3.24 x10^6/uL (3.50-5.40); RED CELL DISTRIBUTION WIDTH 15.2 % (11.5-14.5); WHITE BLOOD COUNT 6.7 x10^3/uL (4.0-11.0)
[2020-12-15 13:16] LABS: ALBUMIN 3.5 g/dL (3.4-5.0); CALCIUM 9.4 mg/dL (8.5-10.1); CREATININE 2.2 mg/dL (0.6-1.0); GFR 21.6; POTASSIUM 3.7 mmol/L (3.5-5.1); TOTAL BILIRUBIN 0.3 mg/dL (0.2-1.0); TOTAL PROTEIN 7.1 g/dL (6.4-8.2)
[2020-12-16 11:56] LABS: THYROID STIM HORMONE (TSH) 1.656 uIU/mL (0.358-3.740)
== END ==
LOC: LAB 11:30
PROVIDERS: ATTEND Nurse Practitioner
DX: I47.1 Supraventricular tachycardia (principal); Z79.899 Other long term (current) drug therapy
CPT/HCPCS: 36415; 80053; 80061; 84443; 85025; 85379; 85610

== ENCOUNTER → 2020-12-29 | Outpatient (CLI) | payer MEDICARE, OTHER ==
[2020-10-20 13:30] VITALS: BP 131/72
[~2020-12-29] MED LIST changes: +CALC1TAB PO; +PRAV80TA2 PO; +SUCR1TAB PO; +WARF-31 PO
--- NOTE | 2020-12-29 11:42 | RAD ---
EXAM: XR CHEST 1V, NM LUNG PERFUSION SCAN INDICATION: Reason: NUC MED PERFUSION STUDY / Spl. Instructions: / History: . TECHNIQUE: Single view COMPARISON: 12/01/2019 chest x-ray FINDINGS: The heart size is normal. Great vessels again show aortic calcification and tortuosity There is no hilar or mediastinal mass. The lungs are clear. There is no pleural effusion or pneumothorax. Sternotomy cerclage wires remain present and intact. IMPRESSION: No active cardiopulmonary disease. Exam: Nuclear medicine perfusion lung scan Clinical history: shortness of breath COMPARISON: Chest x-rays of 12/01/2019 and 12/29/2020 TECHNIQUE: 5.5 mCi of Tc 99m MAA was administered intravenously and spot views were obtained the gamma camera fo r a nuclear medicine perfusion examination. Static images were reviewed as a Q scan in order to exc lude pulmonary embolism. FINDINGS: There is suggestion of the segmental defect in the posterior left upper lobe on the perfusion lung sc an, best appreciated on the LPO projection image. This has been associated with a 30 percent risk of pulmonary embolism. This is intermediate probability for pulmonary embolism based on the modified PIOPED criteria. Impression: Intermediate probability for pulmonary embolism. Electronically signed by: Salvador Shell MD (12/29/2020 11:39 AM) [id number]
== END ==
LOC: NM 10:03
PROVIDERS: ATTEND Nurse Practitioner
DX: R79.1 Abnormal coagulation profile (principal)
CPT/HCPCS: 71045; 78580; A9540; 96374

== ENCOUNTER → 2021-01-19 | Day surgery (SDC) | payer MEDICARE, OTHER ==
[~2021-01-19] MED LIST changes: +APIX2.5T PO; +IPRATRPIUM/ALBUTEROL 0.5/2.5MG 3 ML NEBU. NEB PRN; +IV NORMAL SALINE 500ML 500 ML IV ONE; +IV RINGERS SOLUTION,LACTATED 1,000 ML IV SCH; +LIDOCAINE 2% PF 5 ML VIAL. ONE; +MIDAZOLAM HCL PF 2 MG/2 ML VIAL. IV ONE; +ONDANSETRON PF 4 MG/2 ML VIAL. IV PRN; +PROPOFOL 10,000 MCG/ML (20ML) VIAL IV ONE
[2021-01-19 12:35] VITALS: BP 143/98
== END | disposition home or self-care (01) ==
LOC: SURG 10:09
PROVIDERS: ATTEND Internal Medicine Gastroenterology
DX: R13.10 Dysphagia, unspecified (principal); Z20.822 Contact with and (suspected) exposure to COVID-19; K21.00 Gastro-esophageal reflux disease with esophagitis, without bleeding; K44.9 Diaphragmatic hernia without obstruction or gangrene; K25.7 Chronic gastric ulcer without hemorrhage or perforation; I12.9 Hypertensive chronic kidney disease with stage 1 through stage 4 chronic kidney disease, or unspecified chronic kidney disease; N18.30 Chronic kidney disease, stage 3 unspecified; Z79.899 Other long term (current) drug therapy; Z88.8 Allergy status to other drugs, medicaments and biological substances; Z91.041 Radiographic dye allergy status; Z98.41 Cataract extraction status, right eye; Z98.42 Cataract extraction status, left eye; Z98.890 Other specified postprocedural states; Z88.1 Allergy status to other antibiotic agents; Z88.6 Allergy status to analgesic agent; Z80.8 Family history of malignant neoplasm of other organs or systems; Z80.9 Family history of malignant neoplasm, unspecified; M17.9 Osteoarthritis of knee, unspecified; D50.9 Iron deficiency anemia, unspecified; Z79.82 Long term (current) use of aspirin; Z79.01 Long term (current) use of anticoagulants; Z90.710 Acquired absence of both cervix and uterus
CPT/HCPCS: 43235; 87426; C9803; J2001; J2704; J7040; U0003; U0005

== ENCOUNTER → 2021-03-07 | Outpatient (CLI) | payer MEDICARE, OTHER ==
[2021-01-19 12:35] VITALS: BP 143/98
[~2021-03-07] MED LIST changes: -IPRATRPIUM/ALBUTEROL 0.5/2.5MG 3 ML NEBU. NEB PRN; -IV NORMAL SALINE 500ML 500 ML IV ONE; -IV RINGERS SOLUTION,LACTATED 1,000 ML IV SCH; -LIDOCAINE 2% PF 5 ML VIAL. ONE; -MIDAZOLAM HCL PF 2 MG/2 ML VIAL. IV ONE; -ONDANSETRON PF 4 MG/2 ML VIAL. IV PRN; -PROPOFOL 10,000 MCG/ML (20ML) VIAL IV ONE
[2021-03-07 14:01] LABS: BASO # 0.1 x10^3/uL (0.0-0.2); BASO % 1 % (0-3); EOS # 0.3 x10^3/uL (0.0-0.7); EOS % 4 % (0-3); HEMATOCRIT 32.3 % (36.0-47.0); HEMOGLOBIN 10.7 g/dL (12.0-15.5); LYMPH # 2.1 x10^3/uL (1.0-4.8); LYMPH % 31 % (24-48); MEAN CORPUSCULAR HEMOGLOBIN 28 pg (25-35); MEAN CORPUSCULAR HGB CONC 33 g/dL (31-37); MEAN CORPUSCULAR VOLUME 86 fL (79-100); MONO # 0.9 x10^3/uL (0.0-1.1); MONO % 13 % (0-9); NEUT # 3.5 x10^3uL (1.8-7.7); NEUT % 51 % (31-73); PLATELET COUNT 211 x10^3/uL (140-400); RED BLOOD COUNT 3.76 x10^6/uL (3.50-5.40); RED CELL DISTRIBUTION WIDTH 16.1 % (11.5-14.5); WHITE BLOOD COUNT 6.7 x10^3/uL (4.0-11.0)
[2021-03-07 14:03] LABS: ALBUMIN 3.7 g/dL (3.4-5.0); CALCIUM 9.4 mg/dL (8.5-10.1); GFR 24.1; PHOSPHORUS 3.4 mg/dL (2.6-4.7); POTASSIUM 4.1 mmol/L (3.5-5.1)
[2021-03-08 01:23] LABS: CALCIUM PTH 9.7 mg/dL (8.7-10.3); CREATININE PTH 1.94 mg/dL (0.57-1.00); PTH INTACT 42 pg/mL (15-65)
== END ==
LOC: LAB 12:54
PROVIDERS: ATTEND Nurse Practitioner Adult Health
DX: I12.9 Hypertensive chronic kidney disease with stage 1 through stage 4 chronic kidney disease, or unspecified chronic kidney disease (principal); D63.1 Anemia in chronic kidney disease; N20.0 Calculus of kidney; N18.4 Chronic kidney disease, stage 4 (severe); I49.9 Cardiac arrhythmia, unspecified; R32 Unspecified urinary incontinence
CPT/HCPCS: 36415; 80069; 82728; 83540; 83550; 83970; 85025

== ENCOUNTER → 2021-03-15 | Outpatient (CLI) | payer MEDICARE, OTHER ==
[2021-01-19 12:35] VITALS: BP 143/98
[~2021-03-15] MED LIST changes: -OMEP40CA45 PO; +OMEP40CA7 PO
--- NOTE | 2021-03-15 13:52 | RAD ---
EXAM: Bilateral knees, standing view; left knee, 2 views. HISTORY: Arthroplasty. COMPARISON: 04/18/2020 FINDINGS: A standing view both knees and lateral and sunrise views of the left knee are obtained. The re is mild parenchymal spurring of the right knee and right knee chondrocalcinosis. There are right k nee joint loose bodies. There is left knee arthroplasty in expected position. There is enthesopathy a long the superior left patella. There are vascular calcifications. IMPRESSION: 1. Left knee arthroplasty in expected vision. 2. Mild to moderate osteoarthritis of the right knee with chondrocalcinosis and joint loose bodies. Electronically signed by: Dilcia Wall MD (03/15/2021 1:49 PM) [id number]
== END ==
LOC: RAD 12:16
PROVIDERS: ATTEND Physician Assistant
DX: M17.11 Unilateral primary osteoarthritis, right knee (principal); Z96.652 Presence of left artificial knee joint
CPT/HCPCS: 73560; 73565

== ENCOUNTER → 2021-05-18 | Outpatient (CLI) | payer MEDICARE, OTHER ==
[2021-03-30 10:09] VITALS: BP 121/69
--- NOTE | 2021-05-18 12:04 | RAD ---
EXAM: Left knee, 3 views. HISTORY: Pain. Fall. COMPARISON: 2020 FINDINGS: 3 views of the left knee are obtained. There is a left knee arthroplasty in expected positi on. There is no evidence of prosthesis loosening or periprosthetic fracture. There is a moderate left knee effusion. There is enthesopathy along the superior left patella. There are vascular calcificati ons. IMPRESSION: 1. Left knee arthroplasty in expected position. 2. Moderate left knee effusion. Electronically signed by: Dilcia Wall MD (05/18/2021 12:02 PM) [id number]
== END ==
LOC: RAD 11:03
PROVIDERS: ATTEND Physician Assistant
DX: M25.462 Effusion, left knee (principal); M76.892 Other specified enthesopathies of left lower limb, excluding foot; Z96.652 Presence of left artificial knee joint
CPT/HCPCS: 73562

== ENCOUNTER → 2021-06-11 | Outpatient (CLI) | payer MEDICARE, OTHER ==
[2021-03-30 10:09] VITALS: BP 121/69
--- NOTE | 2021-06-11 16:11 | RAD ---
INDICATION: 80 years of age asymptomatic female patient presents for screening mammography. TECHNIQUE: Full field craniocaudal and mediolateral oblique images of both breasts were obtained usi ng digital technique with tomosynthesis and also analyzed with computer-aided detection software. COMPARISON: Prior mammographic imaging dating 04/13/2018, 05/30/2020. BREAST COMPOSITION: Category B: There are scattered fibroglandular densities. FINDINGS: Benign calcifications are present. The parenchymal pattern appears stable. No suspicious masses, microcalcifications or architectural distortion is present to suggest malignanc y in either breast. The visualized axillae are unremarkable. IMPRESSION: No mammographic evidence of malignancy. RECOMMENDATION: Annual screening mammography is recommended, unless clinically indicated sooner based on symptoms or change in physical exam. BIRADS 2: BENIGN This study was interpreted with the benefit of Computerized Aided Detection (CAD). Patient information is entered into the reminder system with a target due date for the next screening mammogram. Mammography is the most sensitive method for finding small breast cancers, but it does not detect the m all and is not a substitute for careful clinical examination. A negative mammogram does not negate a clinically suspicious finding and should not result in delay in biopsying a clinically suspicious a bnormality. "Our facility is accredited by the [employer] Mammography Program." Electronically signed by: Noe Sanchez MD (06/11/2021 4:09 PM) [facility]
== END ==
LOC: MAMMO 11:13
PROVIDERS: ATTEND Physician Assistant Medical
DX: Z12.31 Encounter for screening mammogram for malignant neoplasm of breast (principal); R92.1 Mammographic calcification found on diagnostic imaging of breast
CPT/HCPCS: 77067

== ENCOUNTER 2021-08-24 04:52 | Emergency (ER) | payer MEDICARE, OTHER ==
[~2021-08-24] VITALS: Ht 157.5 cm; Wt 57.7 kg
--- NOTE | 2021-08-24 05:01 | PHYS DOC ---
Past History Past Medical History: CAD, Gallstones, GERD, Hypertension, Kidney Stones, VT, Pancreatitis, URI, Other Past Surgical History: Cholecystectomy Alcohol Use: None Drug Use: None Adult General HPI HPI Patient is a 80-year-old female presenting for constipation. This is a chronic issue for her she admits being on OxyContin chronically for pain. Nonetheless, she reports last normal bowel movement was 4 days ago. She reports she is postoperative day 3 of a bladder sling repair that was performed at [facility]. States she had an uncomplicated surgery but ever since the day prior, has not had a bowel movement. She has had good fluid intake but poor food intake, she has been sedentary, and she has been passing gas. Reports generalized abdominal pressure and feelings that she needs to have a bowel movement prompting her to come in this morning for evaluation. She does admit she took x1 dose of Colace throughout the night without significant relief in symptoms. She states she typically takes Review of Systems Review of Systems Fourteen body systems of review of systems have been reviewed. See HPI for pertinent positives and negative responses, other parra all other systems are negative, non-pertinent or non-contributory Allergies Allergies Allergies Coded Allergies Type Severity Reaction Last Updated Verified amoxicillin Allergy Severe Rash 08/26/15 No tetracycline Allergy Severe Rash 08/26/15 No atorvastatin Allergy Intermediate 02/10/16 Yes Iodinated Contrast Media Adverse Reaction Intermediate D/T STAGE 3 KIDNEY DISEASE 06/22/20 Yes niacin Adverse Reaction Mild BLISTERS 11/16/14 No Physical Exam Physical Exam Constitutional: Well developed, well nourished, no acute distress, non-toxic appearance. Does appear to be heavily influenced under narcotic pain medication on arrival HENT: Normocephalic, atraumatic, bilateral external ears normal, oropharynx moist, no oral exudates, nose normal. Eyes: PERRLA, EOMI, conjunctiva normal, no discharge. Neck: Normal range of motion, no tenderness, supple, no stridor. Cardiovascular: Heart rate regular, sinus rhythm, no murmurs rubs or gallops Lungs & Thorax: Bilateral breath sounds clear to auscultation Abdomen: Bowel sounds normal, soft, generalized discomfort without any rebound or guarding, no masses, no pulsatile masses. Nonsurgical abdomen, no peritoneal signs : Boston catheter present in adequate position Skin: Warm, dry, no erythema, no rash. Back: No tenderness, no CVA tenderness. Extremities: No tenderness, no cyanosis, no clubbing, ROM intact, no edema. Neurologic: Alert and oriented X 3, grossly normal motor & sensory function, no focal deficits noted. Psychologic: Anxious affect and mood Current Patient Data Vital Signs Vital Signs Date Time Temp Pulse Resp B/P (MAP) Pulse Ox O2 Delivery O2 Flow Rate FiO2 08/24/21 04:57 98.1 72 18 185/69 (107) 96 Room Air Vital Signs Date Time Temp Pulse Resp B/P (MAP) Pulse Ox O2 Delivery O2 Flow Rate FiO2 08/24/21 05:46 73 18 169/77 (107) 95 Room Air 08/24/21 04:57 98.1 EKG EKG [] Radiology/Procedures Radiology/Procedures [] Heart Score C/O Chest Pain: No Risk Factors: Risk Factors: DM, Current or recent (<one month) smoker, HTN, HLP, family history of CAD, obesity. Risk Scores: Risk Factors: DM, Current or recent (<one month) smoker, HTN, HLP, family history of CAD, obesity. Course & Med Decision Making Course & Med Decision Making ABCs unremarkable HPI and comprehensive physical exam nonconcerning for any emergent or surgical issues No indication for further diagnostic ER workup, intervention, or hospitalization at this time I discussed most likely diagnosis of constipation that appears to be chronic due to ongoing opioid dependence but exacerbated with recent anesthetic from surgery 3 days ago. She has only taken x1 dose of Colace in outpatient setting I discussed this could be potentially early presentation of more concerning and potentially life-threatening abdominal pathology but given presentation and the fact that she has had ongoing passage of gas and active bowel sounds with a soft abdomen, these are unlikely She has follow-up scheduled with her surgeon in 3 hours time. Metamucil, Colace and senna administered while in ER setting with instructions going forward regarding care in a constipated patient Strict return precautions discussed with good understanding by patient and sister at bedside, all questions and concerns addressed prior to ER departure Dragon Disclaimer Dragon Disclaimer This electronic medical record was generated, in whole or in part, using a voice recognition dictation system. Departure Departure: Impression: Primary Impression: Constipation Disposition: HOME / SELF CARE / HOMELESS Condition: STABLE Referrals: ADELE WALDROP (PCP) Patient Instructions: Constipation, Adult Additional Instructions: You were seen for constipation. Make sure to drink plenty of fluids and eat lots of fruits and vegetables. Please aim to ingest at least 10 g of fiber daily. You should continue using Colace which is in emulate that will facilitate mixture of stool fat and water in addition to senna or Dulcolax which is a stimulant that should help your bowel movements become more regular. Please keep follow-up with your surgeon this morning for review of continued need of your catheter and repeat examination of your abdomen. Return to the ED if you develop abdominal pain, fever, black/bloody stools, vomiting, or any other new or concerning symptoms. MICKY NORTON DO Aug 24, 2021 05:01
[2021-08-24] MEDS ORDERED: PSYLLIUM SEED (WITH SUGAR) PACKET. PO SCH (05:23)
[2021-08-24] MEDS ORDERED: ONDANSETRON ODT 4 MG TAB.RAPDIS PO ONE (05:30)
[2021-08-24] MEDS ORDERED: SENNOSIDES/DOCUSATE 8.6/50MG TABLET. PO PRN (05:30)
[2021-08-24] MEDS ORDERED: ONDANSETRON ODT 4 MG TAB.RAPDIS ONE (05:44)
[2021-08-24 05:46] VITALS: BP 169/77
== END 2021-08-24 06:38 | disposition home or self-care (01) ==
LOC: ER 04:52
DX: K59.00 Constipation, unspecified (principal); K21.9 Gastro-esophageal reflux disease without esophagitis; I10 Essential (primary) hypertension; Z90.49 Acquired absence of other specified parts of digestive tract; Z88.1 Allergy status to other antibiotic agents; Z88.8 Allergy status to other drugs, medicaments and biological substances; Z87.442 Personal history of urinary calculi
CPT/HCPCS: 99284; Q0162

== ENCOUNTER 2021-08-27 11:31 | Emergency (ER) | payer MEDICARE, OTHER ==
[~2021-08-27] VITALS: Ht 157.5 cm; Wt 58.9 kg
--- NOTE | 2021-08-27 12:03 | PHYS DOC ---
Past History Past Medical History: CAD, Gallstones, GERD, Hypertension, Kidney Stones, PA, Pancreatitis, URI, Other Additional Past Medical Histor: kidney disease Past Surgical History: Cholecystectomy, Hysterectomy, Other Alcohol Use: None Drug Use: None General Adult EDM: Chief Complaint: CONSTIPATION HPI: HPI: 80-year-old female presents with concern for constipation. The patient had bladder surgery 6 days ago and has been taking the oxycodone pain medication. She has also been using Dulcolax. She drank almost an entire bottle of milk of magnesia yesterday. She did have a bowel movement but it was very firm. She is concerned she has a lot more stool retained. She denies fever or chills. She has no other specific complaints at this time. Review of Systems: Review of Systems: Constitutional: Denies fever or chills Eyes: Denies change in visual acuity HENT: Denies nasal congestion or sore throat Respiratory: Denies cough or shortness of breath Cardiovascular: Denies chest pain or edema GI: Generalized abdominal pain, constipation. : Denies dysuria Musculoskeletal: Denies back pain or joint pain Integument: Denies rash Neurologic: Denies headache, focal weakness or sensory changes Endocrine: Denies polyuria or polydipsia Lymphatic: Denies swollen glands Psychiatric: Denies depression or anxiety Allergies: Allergies: Allergies Coded Allergies Type Severity Reaction Last Updated Verified amoxicillin Allergy Severe Rash 08/26/15 No tetracycline Allergy Severe Rash 08/26/15 No atorvastatin Allergy Intermediate 02/10/16 Yes Iodinated Contrast Media Adverse Reaction Intermediate D/T STAGE 3 KIDNEY DISEASE 06/22/20 Yes niacin Adverse Reaction Mild BLISTERS 11/16/14 No Physical Exam: PE: Constitutional: Well developed, well nourished, no acute distress, non-toxic appearance. [] HENT: Normocephalic, atraumatic, bilateral external ears normal, oropharynx moist, no oral exudates, nose normal. [] Eyes: PERRLA, EOMI, conjunctiva normal, no discharge. [] [] Cardiovascular: Heart rate regular rhythm, no murmur [] Lungs & Thorax: Bilateral breath sounds clear to auscultation [] Abdomen: Bowel sounds normal, soft, no tenderness, no masses, no pulsatile masses. [] [] Extremities: No tenderness, no cyanosis, no clubbing, ROM intact, no edema. [] Neurologic: Alert and oriented X 3, normal motor function, normal sensory function, no focal deficits noted. [] Psychologic: Affect normal, judgement normal, mood normal. [] EKG: EKG: [] Radiology/Procedures: Radiology/Procedures: [] Impressions: EXAM: Abdomen, single view. HISTORY: Constipation. COMPARISON: None. FINDINGS: Frontal views of the abdomen are obtained. There is gaseous distention of the hepatic flexure of the colon. There is moderate stool within the distal colon. There is no evidence of bowel obstruction. IMPRESSION: Distended air-filled hepatic flexure of the colon and moderate stool within the distal colon. Electronically signed by: Dilcia Wall MD (08/27/2021 12:06 PM) [id number] DICTATED AND SIGNED BY: DILCIA WALL MD DATE: 08/27/21 1203 CC: DERIAN LEMONS DO; ADELE WALDROP ~MTH0 0 Heart Score: C/O Chest Pain: N/A Risk Factors: Risk Factors: DM, Current or recent (<one month) smoker, HTN, HLP, family history of CAD, obesity. Risk Scores: Score 0 - 3: 2.5% MACE over next 6 weeks - Discharge Home Score 4 - 6: 20.3% MACE over next 6 weeks - Admit for Clinical Observation Score 7 - 10: 72.7% MACE over next 6 weeks - Early Invasive Strategies Course & Med Decision Making: Course & Med Decision Making Pertinent Labs and Imaging studies reviewed. (See chart for details) The patient's KUB was significant for distal constipation. Patient was given a fleets enema and had some output. We additionally gave her magnesium citrate. She would prefer to go home versus digital rectal disimpaction. I have advised her to use high-dose MiraLAX for a couple days to get the rest of her bowels cleaned out. She is stable for discharge at this time. [] Dragon Disclaimer: Dragnicky Disclaimer: This electronic medical record was generated, in whole or in part, using a voice recognition dictation system. Departure Departure: Impression: Primary Impression: Constipation due to opioid therapy Disposition: HOME / SELF CARE / HOMELESS Condition: STABLE Referrals: ADELE WALDROP (PCP) Patient Instructions: Constipation, Adult, [id number] Additional Instructions: You should use double dose MiraLAX (34g) twice a day for the next 2 days unless you have a large bowel movement then you can decrease to single dose (17g) daily. You can also try glycerin suppositories. These are both available [id number]. DERIAN LEMONS DO Aug 27, 2021 12:02
--- NOTE | 2021-08-27 12:08 | RAD ---
EXAM: Abdomen, single view. HISTORY: Constipation. COMPARISON: None. FINDINGS: Frontal views of the abdomen are obtained. There is gaseous distention of the hepatic flexu re of the colon. There is moderate stool within the distal colon. There is no evidence of bowel obstr uction. IMPRESSION: Distended air-filled hepatic flexure of the colon and moderate stool within the distal co ivan. Electronically signed by: Dilcia Wall MD (08/27/2021 12:06 PM) [id number]
[2021-08-27] MEDS ORDERED: SODIUM PHOSPHATES 19/7GM 133 ML ENEMA. PR ONE (12:45)
[2021-08-27] MEDS ORDERED: MAGNESIUM CITRATE 296 ML SOLUTION. PO ONE (13:30)
[2021-08-27] MEDS ORDERED: FAMOTIDINE 20 MG TABLET PO ONE (15:00)
[2021-08-27] MEDS ORDERED: LIDO:MAALOX 1:1 20 ML SINGLE DOSE. PO ONE (15:00)
[2021-08-27 15:25] VITALS: BP 199/81
== END 2021-08-27 15:57 | disposition home or self-care (01) ==
LOC: ER 11:31
DX: K59.03 Drug induced constipation (principal); T40.2X5A Adverse effect of other opioids, initial encounter; I25.10 Atherosclerotic heart disease of native coronary artery without angina pectoris; K21.9 Gastro-esophageal reflux disease without esophagitis; I10 Essential (primary) hypertension; I25.2 Old myocardial infarction; Z87.442 Personal history of urinary calculi; Z90.49 Acquired absence of other specified parts of digestive tract; Z90.710 Acquired absence of both cervix and uterus; Z88.1 Allergy status to other antibiotic agents; Z88.8 Allergy status to other drugs, medicaments and biological substances; Z91.041 Radiographic dye allergy status; Y92.89 Other specified places as the place of occurrence of the external cause
CPT/HCPCS: 74018; 99284; 99285

== ENCOUNTER → 2021-09-07 | Outpatient (CLI) | payer MEDICARE, OTHER ==
[2021-08-27 15:25] VITALS: BP 199/81
[2021-09-07 11:58] LABS: BASO # 0.1 x10^3/uL (0.0-0.2); BASO % 1 % (0-3); EOS # 0.5 x10^3/uL (0.0-0.7); EOS % 6 % (0-3); HEMOGLOBIN 11.3 g/dL (12.0-15.5); LYMPH # 2.4 x10^3/uL (1.0-4.8); LYMPH % 30 % (24-48); MEAN CORPUSCULAR HEMOGLOBIN 31 pg (25-35); MEAN CORPUSCULAR HGB CONC 33 g/dL (31-37); MEAN CORPUSCULAR VOLUME 92 fL (79-100); MONO # 0.9 x10^3/uL (0.0-1.1); MONO % 11 % (0-9); NEUT # 4.1 x10^3uL (1.8-7.7); NEUT % 52 % (31-73); PLATELET COUNT 226 x10^3/uL (140-400); RED CELL DISTRIBUTION WIDTH 13.6 % (11.5-14.5); WHITE BLOOD COUNT 7.9 x10^3/uL (4.0-11.0)
[2021-09-07 12:20] LABS: ALBUMIN 3.7 g/dL (3.4-5.0); CALCIUM 9.1 mg/dL (8.5-10.1); GFR 24.1; PHOSPHORUS 3.2 mg/dL (2.6-4.7); POTASSIUM 4.2 mmol/L (3.5-5.1)
[2021-09-08 11:08] LABS: CALCIUM PTH 9.9 mg/dL (8.7-10.3); CREATININE PTH 2.03 mg/dL (0.57-1.00); PTH INTACT 35 pg/mL (15-65)
== END ==
LOC: LAB 11:22
PROVIDERS: ATTEND Nurse Practitioner Adult Health
DX: I12.9 Hypertensive chronic kidney disease with stage 1 through stage 4 chronic kidney disease, or unspecified chronic kidney disease (principal); N18.4 Chronic kidney disease, stage 4 (severe); D63.1 Anemia in chronic kidney disease; R32 Unspecified urinary incontinence; N20.0 Calculus of kidney; I49.9 Cardiac arrhythmia, unspecified; Z68.22 Body mass index [BMI] 22.0-22.9, adult
CPT/HCPCS: 36415; 80069; 82728; 83540; 83550; 83970; 85025

== ENCOUNTER → 2022-03-06 | Outpatient (CLI) | payer MEDICARE, OTHER ==
[~2022-03-06] MED LIST changes: -OMEP20TA8 PO; +OMEP20TA91 PO
[2022-03-06 15:27] LABS: BASO % 1 % (0-3); EOS # 0.1 x10^3/uL (0.0-0.7); EOS % 2 % (0-3); HEMATOCRIT 35.2 % (36.0-47.0); LYMPH # 1.5 x10^3/uL (1.0-4.8); LYMPH % 28 % (24-48); MEAN CORPUSCULAR HEMOGLOBIN 31 pg (25-35); MEAN CORPUSCULAR HGB CONC 34 g/dL (31-37); MEAN CORPUSCULAR VOLUME 92 fL (79-100); MONO # 0.9 x10^3/uL (0.0-1.1); MONO % 17 % (0-9); NEUT # 2.7 x10^3uL (1.8-7.7); NEUT % 52 % (31-73); PLATELET COUNT 88 x10^3/uL (140-400); RED BLOOD COUNT 3.84 x10^6/uL (3.50-5.40); RED CELL DISTRIBUTION WIDTH 13.9 % (11.5-14.5); WHITE BLOOD COUNT 5.2 x10^3/uL (4.0-11.0)
[2022-03-06 15:35] LABS: ALBUMIN 3.6 g/dL (3.4-5.0); CALCIUM 9.9 mg/dL (8.5-10.1); CREATININE 1.7 mg/dL (0.6-1.0); PHOSPHORUS 3.8 mg/dL (2.6-4.7); POTASSIUM 3.8 mmol/L (3.5-5.1)
[2022-03-07 13:13] LABS: CALCIUM PTH 9.9 mg/dL (8.7-10.3); CREATININE PTH 1.61 mg/dL (0.57-1.00); PTH INTACT 21 pg/mL (15-65)
== END ==
LOC: LAB 14:32
PROVIDERS: ATTEND Internal Medicine Nephrology
DX: I12.9 Hypertensive chronic kidney disease with stage 1 through stage 4 chronic kidney disease, or unspecified chronic kidney disease (principal); N18.4 Chronic kidney disease, stage 4 (severe); N20.0 Calculus of kidney; D63.1 Anemia in chronic kidney disease; R32 Unspecified urinary incontinence; I49.9 Cardiac arrhythmia, unspecified; Z68.22 Body mass index [BMI] 22.0-22.9, adult
CPT/HCPCS: 36415; 80069; 82728; 83540; 83550; 83970; 85025